=== PATIENT | female | born 1990 | race African-American/Black ===

== ENCOUNTER 2017-03-25 20:08 | Emergency (ER) | payer BC, OTHER ==
[~2017-03-25 20:08] MED LIST: BACT800T5 PO; CEPH500 PO; CEPH500C3 PO; CORT1SOL LEFT EAR; IBUP600T26 PO; NAPR500 PO; PYRI200T4 PO
[2017-03-25 20:10] VITALS: BP 138/97; PULSE 69; RESP 16; TEMP 98.6; O2SAT 99
[2017-03-25] MEDS ORDERED: LIDOCAINE 1%/EPINEPHrine 1:100,000 SOLN 20 ML VIAL INFIL ONE (21:15)
--- NOTE | 2017-03-25 21:16 | PD ---
HPI Chief Complaint: Oral / Dental Pain or Problem Time Seen by Provider: 21:09 Travel History International Travel<30 days: No Contact w/Intl Traveler<30days: No Traveled to known affect area: No History of Present Illness HPI 26-year-old female here for evaluation of dental pain. The patient reports left upper posterior tooth pain that started yesterday. Pain is 7 out of 10, radiates to her left ear, constant, worse with palpation. She is able to swallow and tolerate her secretions. No fevers or chills. She took ibuprofen yesterday which helped, however today it does not appear to be effective. PFSH Past Medical History Diminished Hearing: No Seizures: Yes Shingles: Yes ?: Not LMP: 02/20/17 Menopausal: No : 3 Para: 3 Miscarriage: 0 : 0 Past Surgical History Other Surgery: Yes (TOE SURGERY) Social History Alcohol Use: No Tobacco Use: Yes (/2 ppd) Substance Use: No Allergies-Medications (Allergen,Severity, Reaction): Coded Allergies: Codeine (Verified Allergy, Mild, SICK, ITCHY, 03/25/17) Reported Meds & Prescriptions Reported Meds & Active Scripts Active Cortisporin HC Otic Drops (Cepcihlx-Itzddwicu-BE Otic Drops) 3.5-10,000-1 Mg- Units-% Soln 4 Drop LEFT EAR QID 7 Days Naprosyn (Naproxen) 500 Mg Tab 500 Mg PO Q12HR PRN Pyridium (Phenazopyridine HCl) 200 Mg Tab 200 Mg PO TID PRN As needed for painful urination Keflex 500 mg Cap (Cephalexin Monohydrate) 500 Mg Cap 500 Mg PO TID 7 Days Ibuprofen 600 Mg Tab 600 Mg PO Q8HR PRN Keflex (Cephalexin Monohydrate) 500 Mg Cap 500 Mg PO QID 5 Days Bactrim Ds1 Tab 1 Tab Tab 1 Tab PO BID 10 Days Review of Systems Except as stated in HPI: all other systems reviewed are Neg Physical Exam Narrative GENERAL: Well-developed, well-nourished, comfortable, no acute distress. SKIN: Focused skin assessment warm/dry. HEAD: Atraumatic. Normocephalic. EYES: Pupils equal and round. No scleral icterus. No injection or drainage. ENT: Poor dentition. Left upper posterior molar sensitivity. NEUROLOGICAL: Awake and alert. No obvious cranial nerve deficits. Motor grossly within normal limits. Normal speech. PSYCHIATRIC: Appropriate mood and affect; insight and judgment normal. Data Data Last Documented VS Vital Signs Date Time Temp Pulse Resp B/P Pulse Ox O2 Delivery O2 Flow Rate FiO2 03/25/17 20:10 98.6 69 16 138/97 99 Room Air Orders Lidocai-Epi 1%-1:100,000 Inj (Xylocaine- (03/25/17 21:15) MDM Medical Decision Making Medical Screen Exam Complete: Yes Emergency Medical Condition: Yes Differential Diagnosis Dental caries, dental infection Narrative Course This is a 26 old female who is here for evaluation of left upper/posterior dental pain. Patient has poor dentition with several apparent cavities. No drooling or stridor on exam. No fluctuance or induration. Left greater palatine nerve block was performed with significant improvement in pain. See procedure note. Patient will be discharged home with a perception for pain medication as well as an antibiotic. She was instructed to follow-up with a dentist this week. She was informed on when to return to the emergency department. She verbalizes understanding and agreement with plan. Procedures Procedure Narrative Left greater palatine nerve block: Using a 27-gauge needle, 0.5 cc of 1% lidocaine with epinephrine was injected in the area of the left greater palatine nerve. The patient experienced immediate relief of pain. No complications. Tolerated well. Diagnosis Primary Impression: Pain, dental Referrals: Dentist 3 days Additional Instructions: Follow-up with a dentist this week. Return to the emergency department for worsening symptoms or any other concerns. Scripts Hydrocodone-Acetaminophen (Lortab)5-325 Mg Tab1 Tab PO Q6H PRN (PAIN) #10 TAB Ref 0 Prov:Perry Avalos MD 03/25/17 Penicillin V Potassium 500 Mg [id number] Mg PO Q8H 7 Days Ref 0 Prov:Perry Avalos MD 03/25/17 Disposition: 01 DISCHARGE HOME Condition: Stable Perry Avalos MD Mar 25, 2017 21:16
[2017-03-25] MEDS ORDERED: HYDR-3533 PO (21:26)
[2017-03-25] MEDS ORDERED: PENI500T PO (21:26)
[2017-03-25] MEDS ORDERED: PENICILLIN V POTASSIUM 500 MG TAB PO ONE (21:30)
== END 2017-03-25 23:26 | disposition home or self-care (01) ==
LOC: NEPD 20:08
DX: K08.89 Other specified disorders of teeth and supporting structures (principal); F17.210 Nicotine dependence, cigarettes, uncomplicated
CPT/HCPCS: 64400

== ENCOUNTER 2017-03-28 08:39 | Emergency (ER) | payer OTHER ==
[~2017-03-28 08:39] MED LIST changes: +HYDR-3533 PO; +PENI500T PO
[2017-03-28 08:44] VITALS: BP 140/75; PULSE 75; RESP 16; TEMP 98.2; O2SAT 98
--- NOTE | 2017-03-28 09:09 | PD ---
HPI Chief Complaint: Skin Problem Time Seen by Provider: 09:09 Travel History International Travel<30 days: No Contact w/Intl Traveler<30days: No Traveled to known affect area: No History of Present Illness HPI 26-year-old female presents to the emergency department with 2 complaints. First complaint is vaginal discharge times one week. Reports foul odor. Denies vaginal lesions. Her second complaint is an abscess to the left labia 4 days. Has history of abscess to the same area one year ago. Denies dysuria. Denies abdominal pain, cramping. Reports nausea without vomiting. Denies fever. Last menstrual period February 22. Has not taken any medications or tried any treatments to alleviate her symptoms. Denies any known exposure to STDs. Has no other medical complaints. Allergies to codeine. No other modifying factors or associated signs and symptoms. PFSH Past Medical History Diminished Hearing: No Seizures: Yes Shingles: Yes ?: Unknown LMP: FEBRUARY Menopausal: No : 3 Para: 3 Miscarriage: 0 : 0 Past Surgical History Other Surgery: Yes (TOE SURGERY) Social History Alcohol Use: No Tobacco Use: Yes (1/2 ppd) Substance Use: No Allergies-Medications (Allergen,Severity, Reaction): Coded Allergies: Codeine (Verified Allergy, Mild, SICK, ITCHY, 03/25/17) Reported Meds & Prescriptions Reported Meds & Active Scripts Active Flagyl (Metronidazole) 500 Mg Tab 500 Mg PO BID 7 Days Ibuprofen 800 Mg Tab 800 Mg PO Q6HR PRN Keflex (Cephalexin) 500 Mg Cap 500 Mg PO Q6H 10 Days Bactrim DS (Sulfamethoxazole-Trimethoprim) 800-160 Mg Tab 1 Tab PO BID 10 Days Review of Systems Except as stated in HPI: all other systems reviewed are Neg Physical Exam Narrative GENERAL: Well-nourished, well-developed female patient, in no acute distress; afebrile, nontoxic-appearing SKIN: There is an indurated area to the left which measures about 3 cm in diameter. It is fluctuant but there is no pointing or drainage. There is a zone of inflammation around it but no lymphangitis. No groin HEAD: Atraumatic. Normocephalic. EYES: Pupils equal and round. No scleral icterus. No injection or drainage. ENT: Mucous membranes pink and moist. NECK: Trachea midline. No lymphadenopathy. CARDIOVASCULAR: Regular rate. RESPIRATORY: No accessory muscle use. Clear to auscultation. Breath sounds equal bilaterally. GASTROINTESTINAL: Abdomen soft, non-tender, nondistended. Bilateral pelvic region nontender to palpation. Hepatic and splenic margins not palpable. No guarding, rigidity, rebound tenderness. PELVIC: Exam done in the presence of a nurse. Speculum exam reveals edematous and erythematous cervix with thick white, mucopurulent, foul-smelling discharge. Bimanual exam reveals no palpable masses or adnexa tenderness, no uterine tenderness. No cervical motion tenderness. BACK: No CVA tenderness. MUSCULOSKELETAL: No obvious deformities. No clubbing. No cyanosis. No edema. NEUROLOGICAL: Awake and alert. No obvious cranial nerve deficits. Motor grossly within normal limits. Normal speech. PSYCHIATRIC: Appropriate mood and affect; insight and judgment normal. Data Data Last Documented VS Vital Signs Date Time Temp Pulse Resp B/P Pulse Ox O2 Delivery O2 Flow Rate FiO2 03/28/17 08:44 98.2 75 16 140/75 98 Orders Gc And Chlamydia Pcr (03/28/17 09:05) Wet Prep Profile (03/28/17 09:05) Urinalysis - C+S If Indicated (03/28/17 09:05) Ed Urine Pregnancytest Poc (03/28/17 09:05) Wound Culture And Gram Stain (03/28/17 09:05) Ketorolac Inj (Toradol Inj) (03/28/17 09:15) Azithromycin Powd Pack (Zithromax Powd P (03/28/17 09:30) Ceftriaxone Inj (Rocephin Inj) (03/28/17 09:30) Lidocaine 1% Inj (50 Ml) (Xylocaine 1% I (03/28/17 09:30) Labs Laboratory Tests Test 03/28/17 09:28 Urine Color YELLOW Urine Turbidity HAZY Urine pH 6.0 Urine Specific [place] 1.039 Urine Protein TRACE mg/dL Urine Glucose (UA) NEG mg/dL Urine Ketones NEG mg/dL Urine Occult Blood NEG Urine Nitrite NEG Urine Bilirubin NEG Urine Urobilinogen LESS THAN 2.0 MG/DL Urine Leukocyte Esterase LARGE Urine RBC 1 /hpf Urine WBC 3 /hpf Urine Squamous Epithelial 19 /hpf Cells Urine Mucus MOD /lpf Microscopic Urinalysis Comment CULT NOT INDICATED Clue Cells (Wet Prep) PRESENT Vaginal Trichomonas (Wet Prep) NONE SEEN Vaginal Yeast (Wet Prep) NONE SEEN MDM Medical Decision Making Medical Screen Exam Complete: Yes Emergency Medical Condition: Yes Medical Record Reviewed: Yes Differential Diagnosis Chlamydia, gonorrhea, labial abscess, bacterial vaginosis, vaginal yeast Narrative Course 26-year-old female with left genital labial abscess. See my procedure note for incision and drainage. Patient refused to have the abscess packed with iodoform packing. Wound culture pending. Pelvic exam completed and Chlamydia and gonorrhea are pending. Wet prep profile ordered. Urinalysis ordered. Patient will be empirically treated with Rocephin and azithromycin for cervicitis. 1055: Trichomoniasis and vaginal yeast negative. Positive bacterial vaginosis. Urinalysis with no signs of infection. Bactrim, Keflex, Flagyl prescribed for home. Instructed patient to follow up with gynecology. Patient verbalizes understanding and agreement with treatment plan. Patient is medically cleared and stable for discharge. Discussed reasons to return to the emergency department. Instructed patient to follow up with primary care provider. Patient agrees with treatment plan. The patients vital signs are stable and the patient is stable for outpatient follow-up and treatment. Patient discharged home, stable and in no acute distress. Procedures Procedure Narrative INCISION AND DRAINAGE OF ABSCESS: The area was prepped and was sterilely draped. Ethyl chloride was used to anesthetize the area. The area was properly anesthetized. A number 11 scalpel was used to make a 0.5-cm incision across the area of the abscess. Cultures were obtained. The abscess was drained an irrigated with normal saline. Sterile dressing applied. Diagnosis Primary Impression: Left genital labial abscess Additional Impressions: Cervicitis Bacterial vaginosis Referrals: [employer] Primary Care Physician Patient Instructions: Abscess (ED), Abscess Follow-up (ED), Abscess Incision and Drainage (ED), Bacterial Vaginosis (ED), General Instructions Departure Forms: Tests/Procedures, Work Release Enter return to work date: Mar 30, 2017 Additional Instructions: Complete full course of antibiotics Warm compresses to the affected area Keep area clean and dry Ibuprofen or Tylenol as directed and as needed for pain and inflammation Follow-up with primary care provider 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 Return to emergency department immediately with worsening of symptoms Med/Other Pt SpecificInfo: Prescription(s) given Scripts Metronidazole (Flagyl)500 Mg [id number] Mg PO BID 7 Days Ref 0 Prov:GertrudeSilva CARRIONP 03/28/17 Ibuprofen 800 Mg [id number] Mg PO Q6HR PRN (PAIN) #30 TAB Ref 0 Prov:GertrudeSilvaP 03/28/17 Cephalexin (Keflex)500 Mg [id number] Mg PO Q6H 10 Days Ref 0 Prov:AlonzoSilva díazP 03/28/17 Sulfamethoxazole-Trimethoprim (Bactrim DS)800-160 Mg Tab1 Tab PO BID 10 Days Ref 0 Prov:GertrudeSilva CARRIONP 03/28/17 Disposition: 01 DISCHARGE HOME Condition: Stable AlonzoSilva díaz Mar 28, 2017 09:09
[2017-03-28] MEDS ORDERED: CEPH-460 PO (09:14)
[2017-03-28] MEDS ORDERED: IBUP800T23 PO (09:14)
[2017-03-28] MEDS ORDERED: BACT800T5 PO (09:14)
[2017-03-28] MEDS ORDERED: KETOROLAC TROMETHAMINE 60 MG/2 ML (IM) VIAL IM ONE (09:15)
[2017-03-28] MEDS ORDERED: LIDOCAINE HCL 1% 50 ML VIAL IM ONE (09:30)
[2017-03-28] MEDS ORDERED: cefTRIAXone 250 MG VIAL IM ONE (09:30)
[2017-03-28] MEDS ORDERED: AZITHROMYCIN PWD FOR SUSP 1 GM PACKET PO ONE (09:30)
[2017-03-28 10:35] LABS: BLOOD, URINE NEG (NEG); COMMENT (UR) CULT NOT INDICATED; CULTURE IF INDICATED CULT NOT INDICATED; GLUCOSE,URINE NEG (NEG); KETONE, URINE NEG (NEG); MUCUS URINE MOD /lpf (OCC); NITRITE,URINE NEG (NEG); SQUAMOUS EPITHELIAL CELL URINE 19 /hpf (0-5); URINE COLOR YELLOW (YELLW/STRAW)
[2017-03-28] MEDS ORDERED: METR-1 PO (10:57)
[2017-03-28 17:18] LABS: CHLAMYDIA PCR INVALID (NOT DETECT); NEISSERIA PCR INVALID (NOT DETECT)
== END 2017-03-28 11:07 | disposition home or self-care (01) ==
LOC: NEPD 08:39
DX: N76.4 Abscess of vulva (principal); N72 Inflammatory disease of cervix uteri; N76.0 Acute vaginitis
CPT/HCPCS: 56405; 81001; 84703; 87070; 87210; 87491; 87591; 96372; 99284; J0696; J1885

== ENCOUNTER 2017-05-12 16:31 | Emergency (ER) | payer OTHER ==
[~2017-05-12] VITALS: Ht 180.3 cm; Wt 108.0 kg
[~2017-05-12 16:31] MED LIST changes: +CEPH-460 PO; -CEPH500 PO; -CEPH500C3 PO; -CORT1SOL LEFT EAR; -HYDR-3533 PO; -IBUP600T26 PO; +IBUP800T23 PO; +METR-1 PO; -NAPR500 PO; -PENI500T PO; -PYRI200T4 PO
[2017-05-12 16:35] VITALS: BP 130/82; PULSE 76; RESP 20; TEMP 98.3; O2SAT 100
--- NOTE | 2017-05-12 16:38 | PD ---
Physical Exam Date Seen by Provider: May 12, 2017 Time Seen by Provider: 16:36 Narrative 26 yo female here for lower abdominal pain. Per patient is like cramps. No N/V/ D. Possibly . No other medical problems. pain is 6/10. Cramping. Vitals are stable in triage. Awaiting Bed placement. Data Data Last Documented VS Vital Signs Date Time Temp Pulse Resp B/P Pulse Ox O2 Delivery O2 Flow Rate FiO2 05/12/17 16:35 98.3 76 20 130/[address] [facility] Medical Record Reviewed: Yes Supervised Visit with KRISTOFER: Get [place] May 12, 2017 16:37
--- NOTE | 2017-05-12 16:56 | PD ---
HPI Chief Complaint: GI Complaint Time Seen by Provider: 16:56 Travel History International Travel<30 days: No Contact w/Intl Traveler<30days: No Traveled to known affect area: No History of Present Illness HPI 26 YO F presents to the ED for evaluation of PFSH Past Medical History Diminished Hearing: No Seizures: Yes Shingles: Yes ?: Unknown LMP: 04/03/17 Menopausal: No : 3 Para: 3 Miscarriage: 0 : 0 Past Surgical History Other Surgery: Yes (TOE SURGERY) Social History Alcohol Use: No Tobacco Use: Yes (1/2 ppd) Substance Use: No Allergies-Medications (Allergen,Severity, Reaction): Coded Allergies: Codeine (Verified Allergy, Mild, SICK, ITCHY, 05/12/17) Reported Meds & Prescriptions Reported Meds & Active Scripts Active Flagyl (Metronidazole) 500 Mg Tab 500 Mg PO BID 7 Days Ibuprofen 800 Mg Tab 800 Mg PO Q6HR PRN Keflex (Cephalexin) 500 Mg Cap 500 Mg PO Q6H 10 Days Bactrim DS (Sulfamethoxazole-Trimethoprim) 800-160 Mg Tab 1 Tab PO BID 10 Days Data Data Last Documented VS Vital Signs Date Time Temp Pulse Resp B/P Pulse Ox O2 Delivery O2 Flow Rate FiO2 05/12/17 16:35 98.3 76 20 130/82 100 Room Air Orders Urinalysis - C+S If Indicated (05/12/17 16:55) Ed Urine Pregnancytest Poc (05/12/17 16:55) Lori Lynn May 12, 2017 16:56
--- NOTE | 2017-05-12 18:57 | PD ---
HPI Chief Complaint: GI Complaint Time Seen by Provider: 17:00 Travel History International Travel<30 days: No Contact w/Intl Traveler<30days: No Traveled to known affect area: No History of Present Illness HPI C/O LOWER ABD CRAMPY SUPRAPUBIC PAIN, DENIES N/V/D/ AT THIS POINT AND RATES IT A 310, PFSH Past Medical History Diminished Hearing: No Seizures: Yes Shingles: Yes Tetanus Vaccination: < 5 Years Influenza Vaccination: No ?: Unknown LMP: 04/03/17 Menopausal: No : 4 Para: 4 Miscarriage: 0 : 0 Past Surgical History Surgical History: No Previous Surgery Other Surgery: Yes (TOE SURGERY) Social History Alcohol Use: No Tobacco Use: Yes (1/2 ppd) Substance Use: No Allergies-Medications (Allergen,Severity, Reaction): Coded Allergies: Codeine (Verified Allergy, Mild, SICK, ITCHY, 05/15/17) Reported Meds & Prescriptions Reported Meds & Active Scripts Active No Active Prescriptions or Reported Medications Review of Systems Except as stated in HPI: all other systems reviewed are Neg Gastrointestinal: Positive: Abdominal Pain Physical Exam Narrative GENERAL: SKIN: Warm and dry. HEAD: Atraumatic. Normocephalic. EYES: Pupils equal and round. No scleral icterus. No injection or drainage. ENT: No nasal bleeding or discharge. Mucous membranes pink and moist. NECK: Trachea midline. No JVD. CARDIOVASCULAR: Regular rate and rhythm. RESPIRATORY: No accessory muscle use. Clear to auscultation. Breath sounds equal bilaterally. GASTROINTESTINAL: Abdomen soft, non-tender, nondistended. MUSCULOSKELETAL: Extremities without clubbing, cyanosis, or edema. No obvious deformities. NEUROLOGICAL: Awake and alert. No obvious cranial nerve deficits. Motor grossly within normal limits. Five out of 5 muscle strength in the arms and legs. Normal speech. PSYCHIATRIC: Appropriate mood and affect; insight and judgment normal. Data Data Last Documented VS Vital Signs Date Time Temp Pulse Resp B/P Pulse Ox O2 Delivery O2 Flow Rate FiO2 05/12/17 20:52 82 18 135/84 100 Room Air 05/12/17 16:35 98.3 Orders Urinalysis - C+S If Indicated (05/12/17 16:55) Ed Urine Pregnancytest Poc (05/12/17 16:55) Beta Hcg (Quant/Titer) (05/12/17 20:36) Complete Blood Count With Diff (05/12/17 20:36) Basic Metabolic Panel (Bmp) (05/12/17 20:36) Complete Rh (05/12/17 20:36) Iv Access Insert/Monitor (05/12/17 20:36) Us Pelvis (Ques Pr/Ect)W Trans (05/12/17 ) Labs Laboratory Tests Test 05/12/17 05/12/17 19:05 20:50 Urine Color YELLOW Urine Turbidity HAZY Urine pH 6.0 Urine Specific [place] 1.032 Urine Protein 30 mg/dL Urine Glucose (UA) NEG mg/dL Urine Ketones 10 mg/dL Urine Occult Blood NEG Urine Nitrite NEG Urine Bilirubin NEG Urine Urobilinogen 2.0 MG/DL Urine Leukocyte Esterase SMALL Urine RBC 3 /hpf Urine WBC 3 /hpf Urine Squamous Epithelial 6 /hpf Cells Urine Mucus MANY /lpf Microscopic Urinalysis Comment CULT NOT INDICATED White Blood Count 9.5 TH/MM3 Red Blood Count 4.34 MIL/MM3 Hemoglobin 10.2 GM/DL Hematocrit 33.1 % Mean Corpuscular Volume 76.4 FL Mean Corpuscular Hemoglobin 23.5 PG Mean Corpuscular Hemoglobin 30.8 % Concent Red Cell Distribution Width 18.4 % Platelet Count 251 TH/MM3 Mean Platelet Volume 8.7 FL Neutrophils (%) (Auto) 50.5 % Lymphocytes (%) (Auto) 38.1 % Monocytes (%) (Auto) 6.4 % Eosinophils (%) (Auto) 4.3 % Basophils (%) (Auto) 0.7 % Neutrophils # (Auto) 4.8 TH/MM3 Lymphocytes # (Auto) 3.6 TH/MM3 Monocytes # (Auto) 0.6 TH/MM3 Eosinophils # (Auto) 0.4 TH/MM3 Basophils # (Auto) 0.1 TH/MM3 CBC Comment DIFF FINAL Differential Comment Sodium Level 139 MEQ/L Potassium Level 3.4 MEQ/L Chloride Level 108 MEQ/L Carbon Dioxide Level 22.8 MEQ/L Anion Gap 8 MEQ/L Blood Urea Nitrogen 10 MG/DL Creatinine 0.88 MG/DL Estimat Glomerular Filtration 94 ML/MIN Rate Random Glucose 77 MG/DL Calcium Level 8.8 MG/DL Human Chorionic Gonadotropin, 2342 MIU/ML Quant Blood Type B POSITIVE Rho(D) Type POSITIVE MDM Medical Decision Making Medical Screen Exam Complete: Yes Emergency Medical Condition: Yes Medical Record Reviewed: Yes Differential Diagnosis UTI V ECTOPIC V IUP Narrative Course NO E/O ADNEXAL MASS, NO E/O UTI, NL LABS Diagnosis Primary Impression: Intrauterine , incidental Scripts No Active Prescriptions or Reported Meds Disposition: 01 DISCHARGE HOME Condition: Stable Aníbal Lane MD May 12, 2017 18:57
[2017-05-12 19:19] LABS: BLOOD, URINE NEG (NEG); COMMENT (UR) CULT NOT INDICATED; CULTURE IF INDICATED CULT NOT INDICATED; GLUCOSE,URINE NEG (NEG); KETONE, URINE 10 mg/dL (NEG); MUCUS URINE MANY /lpf (OCC); NITRITE,URINE NEG (NEG); SQUAMOUS EPITHELIAL CELL URINE 6 /hpf (0-5); URINE COLOR YELLOW (YELLW/STRAW)
[2017-05-12 20:52] VITALS: BP 135/84; PULSE 82; RESP 18; O2SAT 100
[2017-05-12 21:15] LABS: AUTOMATED NEUTROPHIL # 4.8 TH/MM3 (1.8-7.7); BASOPHIL # 0.1 TH/MM3 (0-0.2); BASOPHIL % 0.7 % (0.0-2.0); EOSINOPHIL # 0.4 TH/MM3 (0-0.4); EOSINOPHIL % 4.3 % (0.0-4.0); HEMATOCRIT 33.1 % (35.0-46.0); HEMO FLAGS DIFF FINAL; LYMPH % 38.1 % (9.0-44.0); LYMPHOCYTE # 3.6 TH/MM3 (1.0-4.8); MEAN CELL VOLUME 76.4 FL (80.0-100.0); MEAN CORPUSCULAR HEMOGLOBIN 23.5 PG (27.0-34.0); MEAN CORPUSCULAR HGB CONC 30.8 % (32.0-36.0); MONO % 6.4 % (0.0-8.0); NEUT % 50.5 % (16.0-70.0); PLATELET COUNT 251 TH/MM3 (150-450); RED BLOOD COUNT 4.34 MIL/MM3 (4.00-5.30); RED CELL DISTRIBUTION WIDTH 18.4 % (11.6-17.2); WHITE BLOOD COUNT 9.5 TH/MM3 (4.0-11.0)
[2017-05-12 21:27] LABS: BICARBONATE 22.8 MEQ/L (21.0-32.0); POTASSIUM 3.4 MEQ/L (3.5-5.1)
--- NOTE | 2017-05-12 22:28 | RADRPT ---
EXAM DATE/TIME: 05/12/2017 21:10 [place] COMPARISON: No previous studies available for comparison. INDICATIONS : Pelvic pain with . LAB(S): Beta-hC MEDICAL HISTORY : . Seizures. Shingles. SURGICAL HISTORY : Toe surgery. ENCOUNTER: Initial ACUITY: 4-6 days PAIN SCORE: 2/10 LOCATION: Bilateral pelvis MEASUREMENTS: UTERUS: 10.9 x 7.2 x 6.3 cm ENDOMETRIAL STRIPE: >20 mm RIGHT OVARY: 3.2 x 2.6 x 1.9 cm LEFT OVARY: 5.5 x 4.5 x 2.8 cm FREE FLUID: No CROWN RUMP LENGTH: Not visualized = WKS DAYS COMPLETE APPROPRIATE ITEMS PRE PROCEDURE: ID x 2: Complete NameDate of BirthPatient Name Band . FINDINGS: A gestational sac and yet the sac are seen in the uterine fundus. Measurements are out of range for a ccurate dating. Right ovary unremarkable. There is a 4.2 cm left ovarian cyst. CONCLUSION: 1. Early with positive gestational sac and yolk sac. Measurements to small for accurate sadia ing. No pole identified at this point. 2. 4.2 cm left ovarian cyst. Addison Rascon MD on May 12, 2017 at 22:21 Board Certified Radiologist. This report was verified electronically.
[2017-05-12] MEDS ORDERED: ZOFR4TAB3 SL (22:34)
== END 2017-05-12 23:02 | disposition home or self-care (01) ==
LOC: NEPD 16:31
DX: O26.891 Other specified pregnancy related conditions, first trimester (principal); Z3A.00 Weeks of gestation of pregnancy not specified
CPT/HCPCS: 76700; 76817; 80048; 81001; 84702; 84703; 85025; 86901

== ENCOUNTER 2017-05-15 18:40 | Emergency (ER) | payer OTHER ==
[~2017-05-15] VITALS: Ht 180.3 cm; Wt 104.5 kg
[~2017-05-15 18:40] MED LIST changes: +ZOFR4TAB3 SL
[2017-05-15 18:50] VITALS: BP 117/76; PULSE 66; RESP 24; TEMP 98.7; O2SAT 100
--- NOTE | 2017-05-15 19:42 | PD ---
HPI Chief Complaint: Back/ Neck Pain or Injury Time Seen by Provider: 19:32 Travel History International Travel<30 days: No Contact w/Intl Traveler<30days: No Traveled to known affect area: No History of Present Illness HPI 26-year-old black female with early first trimester presents with complaints of upper back pain. The patient states that she had lifted her cousin up off the floor earlier today twisting her back. The patient states that she has not had any abdominal pain. No nausea vomiting. No acute fluid or vaginal bleeding. PFSH Past Medical History Diminished Hearing: No Seizures: Yes Shingles: Yes ?: LMP: LMP 04/03/17 Menopausal: No : 4 Para: 4 Miscarriage: 0 : 0 Past Surgical History Other Surgery: Yes (TOE SURGERY) Social History Alcohol Use: No Tobacco Use: Yes (10/05 ppd) Substance Use: No Allergies-Medications (Allergen,Severity, Reaction): Coded Allergies: Codeine (Verified Allergy, Mild, SICK, ITCHY, 05/15/17) Reported Meds & Prescriptions Reported Meds & Active Scripts Active No Active Prescriptions or Reported Medications Review of Systems Except as stated in HPI: all other systems reviewed are Neg Physical Exam Narrative GENERAL: Well-developed, well-nourished in no apparent distress. Nontoxic appearing. HEAD: Normocephalic, atraumatic. EYES: Pupils equal round and reactive. Extraocular motions intact. No scleral icterus. No injection or drainage. ENT: Nose clear. Throat without erythema, tonsillar hypertrophy or exudate. Uvula midline. Airway patent. NECK: Trachea midline. Supple, nontender, moves head freely. No central bony tenderness or spasm. CARDIOVASCULAR: Regular rate and rhythm without murmurs, gallops, or rubs. RESPIRATORY: Clear to auscultation. Breath sounds equal bilaterally. No wheezes , rales, or rhonchi. GASTROINTESTINAL: Abdomen soft, non-tender, nondistended. No hepato-splenomegaly , or palpable masses. No guarding. EXTREMITIES: No clubbing, cyanosis, or edema. No joint tenderness. BACK: No central bony tenderness to palpation of dorsal lumbar spine. Patient has mild paraspinal muscle tenderness without obvious spasm. She has full range of motion. She is neurovascular intact. Without deformity. No flank tenderness. NEUROLOGICAL: Awake, alert and oriented x 3 .Cranial nerves grossly intact. Motor and sensory grossly within normal limits. Normal speech. Data Data Last Documented VS Vital Signs Date Time Temp Pulse Resp B/P Pulse Ox O2 Delivery O2 Flow Rate FiO2 05/15/17 18:50 98.7 66 24 117/76 100 Room Air MDM Medical Decision Making Medical Screen Exam Complete: Yes Emergency Medical Condition: Yes Medical Record Reviewed: Yes Differential Diagnosis MDM: High Differential diagnoses: Fracture, sprain, strain, HNP, nerve or vascular injury , epidural abscess, pilonidal cyst Narrative Course This is back strain. Patient is in her first trimester . She is advised only to take Tylenol. Patient verbally states understanding. Diagnosis Primary Impression: Back strain Qualified Code: S39.012A - Back strain, initial encounter Patient Instructions: General Instructions Departure Forms: Tests/Procedures, Work Release Special Instructions: No work 2 days. Additional Instructions: Rest. Ice for the next 3 days followed by heat . Tylenol only for pain due to her . Follow-up with a primary care doctor in one week. Return to the ER for emergencies. Med/Other Pt SpecificInfo: No Meds Exist/No RX given Scripts No Active Prescriptions or Reported Meds Disposition: 01 DISCHARGE HOME Condition: Stable Addison [place] May 15, 2017 19:42
== END 2017-05-15 19:52 | disposition home or self-care (01) ==
LOC: NEPD 18:40
DX: O99.89 Other specified diseases and conditions complicating pregnancy, childbirth and the puerperium (principal); S39.012A Strain of muscle, fascia and tendon of lower back, initial encounter; F17.200 Nicotine dependence, unspecified, uncomplicated; Z86.69 Personal history of other diseases of the nervous system and sense organs; X50.0XXA Overexertion from strenuous movement or load, initial encounter; Z3A.00 Weeks of gestation of pregnancy not specified
CPT/HCPCS: 99283

== ENCOUNTER 2017-05-27 04:23 | Emergency (ER) | payer OTHER ==
[~2017-05-27] VITALS: Ht 180.3 cm; Wt 99.0 kg
[2017-05-27 04:27] VITALS: BP 129/72; PULSE 70; RESP 20; TEMP 97.7; O2SAT 100
--- NOTE | 2017-05-27 05:08 | PD ---
HPI Chief Complaint: Abdominal Pain Time Seen by Provider: 05:04 Travel History International Travel<30 days: No Contact w/Intl Traveler<30days: No Traveled to known affect area: No History of Present Illness HPI 26-year-old female presents to the emergency department for complaint of pelvic pain and vaginal bleeding and pressure with urination. Patient is also noted some right flank pain. Patient is 5 para 4 AB 0. Patient's last period was April 03 and normal for her. Patient states that she went to bed feeling well awakened at 2 AM with severe pain, 9/10 intensity. PFSH Past Medical History Narrative Medical Seizures shingles toe surgery AB 0; no tobacco use: Nursing notes reviewed Diminished Hearing: No Seizures: Yes Shingles: Yes ?: Menopausal: No : 5 Para: 4 Miscarriage: 0 : 0 Past Surgical History Section: Yes (X1) Other Surgery: Yes (TOE SURGERY) Social History Alcohol Use: No Tobacco Use: No Substance Use: No Allergies-Medications (Allergen,Severity, Reaction): Coded Allergies: codeine (Unverified Allergy, Mild, SICK, ITCHY, 05/18/17) Reported Meds & Prescriptions Reported Meds & Active Scripts Active Keflex (Cephalexin) 500 Mg Capsule 500 Mg PO Q6H 7 Days Review of Systems Except as stated in HPI: all other systems reviewed are Neg General / Constitutional: No: Fever, Chills HENT: No: Congestion Cardiovascular: No: Chest Pain or Discomfort Respiratory: No: Shortness of Breath Gastrointestinal: Positive: Nausea, Abdominal Pain (suprapubic pressure), No: Vomiting Genitourinary: Positive: Dysuria, Hematuria, Flank Pain, Vaginal Bleeding Musculoskeletal: No: Myalgias, Arthralgias Skin: No Rash Neurologic: No: Weakness Psychiatric: No: Anxiety Endocrine: No: Heat Intolerance Hematologic/Lymphatic: No: Easy Bruising Physical Exam Narrative GENERAL: Well-developed well-nourished obese female in no acute distress no respiratory distress SKIN: Warm and dry. HEAD: Normocephalic. EYES: No scleral icterus. No injection or drainage. NECK: Supple, trachea midline. No JVD or lymphadenopathy. CARDIOVASCULAR: Regular rate and rhythm without murmurs, gallops, or rubs. RESPIRATORY: Breath sounds equal bilaterally. No accessory muscle use. GASTROINTESTINAL: Abdomen soft, suprapubic tenderness to palpation without guarding or rebound, nondistended. Pelvic exam: External exam no redness no induration no blood; speculum exam scant white mucous no blood no clots no tissue cervical os closed; bimanual exam no adnexal mass or tenderness or enlargement consistent with no cervical motion tenderness cervical os closed. MUSCULOSKELETAL: No cyanosis, or edema. BACK: Nontender without obvious deformity. No CVA tenderness. Data Data Last Documented VS Vital Signs Date Time Temp Pulse Resp B/P (MAP) Pulse Ox O2 Delivery O2 Flow Rate FiO2 05/27/17 04:27 97.7 70 20 129/72 (91) 100 Orders Orders Beta Hcg (Quant/Titer) (05/27/17 05:04) Complete Blood Count With Diff (05/27/17 05:04) Basic Metabolic Panel (Bmp) (05/27/17 05:04) Gc And Chlamydia Pcr (05/27/17 05:04) Complete Rh (05/27/17 05:04) Wet Prep Profile (05/27/17 05:04) Urinalysis - C+S If Indicated (05/27/17 05:04) Iv Access Insert/Monitor (05/27/17 05:04) Ed Urine Pregnancytest Poc (05/27/17 05:04) Us Pelvis (Ques Pr/Ect)W Trans (05/27/17 ) Urine Culture (05/27/17 05:10) Labs Laboratory Tests Test 05/27/17 05:00 05/27/17 05:10 White Blood Count 7.0 TH/MM3 Red Blood Count 4.17 MIL/MM3 Hemoglobin 9.7 GM/DL Hematocrit 32.1 % Mean Corpuscular Volume 77.1 FL Mean Corpuscular Hemoglobin 23.3 PG Mean Corpuscular Hemoglobin Concent 30.2 % Red Cell Distribution Width 18.3 % Platelet Count 221 TH/MM3 Mean Platelet Volume 9.4 FL Neutrophils (%) (Auto) 46.2 % Lymphocytes (%) (Auto) 40.8 % Monocytes (%) (Auto) 8.2 % Eosinophils (%) (Auto) 4.2 % Basophils (%) (Auto) 0.6 % Neutrophils # (Auto) 3.3 TH/MM3 Lymphocytes # (Auto) 2.9 TH/MM3 Monocytes # (Auto) 0.6 TH/MM3 Eosinophils # (Auto) 0.3 TH/MM3 Basophils # (Auto) 0.0 TH/MM3 CBC Comment DIFF FINAL Differential Comment Blood Urea Nitrogen 7 MG/DL Creatinine 0.74 MG/DL Random Glucose 83 MG/DL Calcium Level 8.6 MG/DL Sodium Level 139 MEQ/L Potassium Level 3.6 MEQ/L Chloride Level 108 MEQ/L Carbon Dioxide Level 22.1 MEQ/L Anion Gap 9 MEQ/L Estimat Glomerular Filtration Rate 115 ML/MIN Human Chorionic Gonadotropin, Quant 63016 MIU/ML Urine Color YELLOW Urine Turbidity CLEAR Urine pH 6.0 Urine Specific [place] 1.028 Urine Protein NEG mg/dL Urine Glucose (UA) NEG mg/dL Urine Ketones NEG mg/dL Urine Occult Blood NEG Urine Nitrite NEG Urine Bilirubin NEG Urine Urobilinogen LESS THAN 2.0 MG/DL Urine Leukocyte Esterase LARGE Urine RBC 15 /hpf Urine WBC 11 /hpf Urine Squamous Epithelial Cells 2 /hpf Urine Bacteria RARE /hpf Urine Hyaline Casts 2 /lpf Urine Mucus FEW /lpf Urine Trichomonas RARE Microscopic Urinalysis Comment CULTURE INDICATED Clue Cells (Wet Prep) PRESENT Vaginal Trichomonas (Wet Prep) PRESENT Vaginal Yeast (Wet Prep) NONE SEEN MDM Medical Decision Making Medical Screen Exam Complete: Yes Emergency Medical Condition: Yes Medical Record Reviewed: Yes Interpretation(s) Etioc-rr-liaa hCG: Positive (B+) HC,793 CBC & BMP Diagram 05/27/17 05:00 Calcium Level 8.6 Vital Signs Date Time Temp Pulse Resp B/P (MAP) Pulse Ox O2 Delivery O2 Flow Rate FiO2 05/27/17 04:27 97.7 70 20 129/72 (91) 100 Differential Diagnosis Pelvic pain, ectopic , threatened miscarriage, UTI, pyelonephritis, appendicitis, biliary colic Narrative Course IV access obtained specimens collected and sent for resulting; [id number] hCG positive After informed verbal consent patient was placed supine a curvilinear probe used by me was applied to the lower abdomen below the pannus at the pelvis and with sagittal and longitudinal views an IUP was identified with heart rate of approximately 136. Diagnosis Primary Impression: Qualified Codes: Z3A.01 - Less than 8 weeks gestation of Additional Impression: UTI (urinary tract infection) Referrals: Investment Director 1 week Keep scheduled appointment Patient Instructions: General Instructions Additional Instructions: keep scheduled appointment with [facility] Complete course of antibiotic as prescribed Increase fluid hydration Take acetaminophen/Tylenol as needed for fever 100.4F or greater or for minor pain Take vitamins Return to the emergency department for any concerns or change in condition Med/Other Pt SpecificInfo: Prescription(s) given Scripts Cephalexin (Keflex) 500 Mg Capsule 500 MG PO Q6H for Infection for 7 Days, CAP 0 Refills Prov: Sheri Baltazar MD 05/27/17 Sheri Baltazar MD May 27, 2017 05:08
[2017-05-27 05:21] LABS: AUTOMATED NEUTROPHIL # 3.3 TH/MM3 (1.8-7.7); BASOPHIL % 0.6 % (0.0-2.0); EOSINOPHIL # 0.3 TH/MM3 (0-0.4); EOSINOPHIL % 4.2 % (0.0-4.0); HEMATOCRIT 32.1 % (35.0-46.0); HEMO FLAGS DIFF FINAL; LYMPH % 40.8 % (9.0-44.0); LYMPHOCYTE # 2.9 TH/MM3 (1.0-4.8); MEAN CELL VOLUME 77.1 FL (80.0-100.0); MEAN CORPUSCULAR HEMOGLOBIN 23.3 PG (27.0-34.0); MEAN CORPUSCULAR HGB CONC 30.2 % (32.0-36.0); MONO % 8.2 % (0.0-8.0); NEUT % 46.2 % (16.0-70.0); PLATELET COUNT 221 TH/MM3 (150-450); RED BLOOD COUNT 4.17 MIL/MM3 (4.00-5.30); RED CELL DISTRIBUTION WIDTH 18.3 % (11.6-17.2)
[2017-05-27 05:30] LABS: BACTERIA, URINE RARE /hpf; BLOOD, URINE NEG (NEG); COMMENT (UR) CULTURE INDICATED; CULTURE IF INDICATED CULTURE INDICATED; GLUCOSE,URINE NEG (NEG); HYALINE CAST, URINE 2 /lpf (RARE); KETONE, URINE NEG (NEG); MUCUS URINE FEW /lpf (OCC); NITRITE,URINE NEG (NEG); SQUAMOUS EPITHELIAL CELL URINE 2 /hpf (0-5); URINE COLOR YELLOW (YELLW/STRAW)
[2017-05-27 05:40] LABS: BICARBONATE 22.1 MEQ/L (21.0-32.0); POTASSIUM 3.6 MEQ/L (3.5-5.1)
[2017-05-27] MEDS ORDERED: CEPH-460 PO (06:18)
[2017-05-27 07:12] LABS: CHLAMYDIA PCR NOT DETECTED (NOT DETECT); NEISSERIA PCR NOT DETECTED (NOT DETECT)
[2017-05-27 07:30] VITALS: BP 114/73; PULSE 77; RESP 18; TEMP 98.2; O2SAT 99
--- NOTE | 2017-05-27 08:47 | RADRPT ---
EXAM DATE/TIME: 05/27/2017 07:58 [facility] COMPARISON: US PELVIS (QUEST PREG/ECTOPIC) W/TRANSVAG, May 12, 2017, 21:10. INDICATIONS : Pelvic pain and abdominal cramping. LAB(S): Beta-hC,793 MEDICAL HISTORY : . SURGICAL HISTORY : section. ENCOUNTER: Subsequent ACUITY: 1 day PAIN SCORE: 4/10 LOCATION: Pelvis. MEASUREMENTS: UTERUS: 11.1 x 5.4 x 7.7 cm ENDOMETRIAL STRIPE: 16 mm RIGHT OVARY: 3.8 x 2.0 x 1.0 cm LEFT OVARY: 4.3 x 3.3 x 4.6 cm FREE FLUID: No CROWN RUMP LENGTH: 0.9 cm = 6 WKS 6 DAYS FHR: 152 BPM FINDINGS: UTERUS: The examination demonstrates a gestational sac within the uterus. There is a pole evident with a crown-rump length of 0.9 CM which corresponds to a gestational age of 6 weeks 6 days. There is a fe sami heartbeat present at 150 beats per minute. Of note, there is an area of decreased echogenicity ad jacent to the gestational sac which could represent a small area of subchorionic hemorrhage. RIGHT OVARY: Ovary contains no mass or significant cystic lesion. LEFT OVARY: The examination demonstrated a 3.7 x 3.4 x 3.9 cm cyst arising from the left ovary. MISCELLANEOUS: No free fluid. CONCLUSION: 1. Viable intrauterine gestation estimated age 6 weeks 6 days. 2. 1.7 x 0.8 x 1.3 cm complex area seen adjacent to the gestational sac possibly representing a small subchorionic hemorrhage. 3. 3.7 x 3.4 x 3.9 cm cyst in the left ovary. Marky Corbett MD on May 27, 2017 at 8:40 Board Certified Radiologist. This report was verified electronically.
[2017-05-27 09:26] VITALS: BP 114/73
== END 2017-05-27 09:28 | disposition home or self-care (01) ==
LOC: NEPC 04:23
DX: O23.41 Unspecified infection of urinary tract in pregnancy, first trimester (principal); Z86.69 Personal history of other diseases of the nervous system and sense organs; Z3A.01 Less than 8 weeks gestation of pregnancy
CPT/HCPCS: 76700; 80048; 81001; 84702; 84703; 85025; 86901; 87086; 87210; 87491; 87591; 99284

== ENCOUNTER 2017-07-27 17:32 | Emergency (ER) | payer MEDICAID, OTHER ==
[~2017-07-27 17:32] MED LIST changes: -BACT800T5 PO; -IBUP800T23 PO; -METR-1 PO; -ZOFR4TAB3 SL
[2017-07-27 17:34] VITALS: BP 129/60; PULSE 76; RESP 15; TEMP 98.8; O2SAT 98
== END 2017-07-27 18:05 | disposition left against medical advice (07) ==
LOC: NED 17:32
DX: R05 Cough (principal); Z53.21 Procedure and treatment not carried out due to patient leaving prior to being seen by health care provider
CPT/HCPCS: 99281

== ENCOUNTER 2017-08-05 10:00 | Emergency (ER) | payer MEDICAID ==
[2017-08-05] VITALS (13 sets, daily range): PULSE 58–236; RESP 16; TEMP 98
--- NOTE | 2017-08-05 10:47 | PD ---
HPI Travel History International Travel<30 Days: No Contact w/Intl Traveler<30Days: No Known Affected Area: No History of Present Illness HPI 26 yr old at 17/5 weeks brought in by [facility] for abdominal pain. Patient reports that she had 2 episodes of non-blooding vomiting and nausea beginning this morning. She also complained of left-sided sharp, dull, intermittent abdominal pain radiating to her back. She suspected that it was caused by gas and tried positioning herself on her left side and on her knees w/o improvement. Her last bowel movement was 2 days ago. She endorses productive cough and BOWSER. She was recently treated 2 weeks ago for Trichomonas with a "cream ". She reports that her vaginal discharge is improving since treatment. Her vaginal discharge is clear, white, and thin. She was suppose to go to her OB/ [facility] (Dr. Prasanth Clancy) today for follow-up. She denies any hx of GC & chlamydia. She denies fevers, LOF, dysuria, vaginal bleeding, SOB, and CP. History Past Medical History Narrative Medical Seizures, last seizure was 2 years ago, not on meds Obstetric History Obstetric History -first 3 deliveries Previous delivery was primary C-setion due to Ecclampsia and respiratory distress Past Surgical History Narrative Surgical Family History Narrative Family History Breast Cancer in paternal grandma HTN Social History Alcohol Use: No Tobacco Use: Yes (smoking several cigarettes/ day) Substance Abuse: No Allergies-Medications (Allergen,Severity, Reaction): Coded Allergies: codeine (Unverified Allergy, Mild, SICK, ITCHY, 05/18/17) Home Meds Active Scripts Cephalexin (Keflex) 500 Mg Capsule, 500 MG PO Q6H for Infection for 7 Days, CAP 0 Refills Prov:Sheri Baltazar MD 05/27/17 Review of Systems Except as stated in HPI: all other systems reviewed are Neg Physical Exam Vital Signs Date Time Temp Pulse Resp B/P (MAP) Pulse Ox O2 Delivery O2 Flow Rate FiO2 08/05/17 10:35 80 08/05/17 10:35 80 08/05/17 10:30 80 08/05/17 10:30 80 08/05/17 10:25 74 08/05/17 10:25 76 08/05/17 10:20 72 08/05/17 10:15 98.0 Narrative GENERAL: Well-nourished, well-developed patient. SKIN: Warm and dry. HEAD: Normocephalic and atraumatic. EYES: No scleral icterus. No injection or drainage. ENT: No nasal drainage noted. Mucous membranes pink. Airway patent. NECK: Supple, trachea midline. No JVD. CARDIOVASCULAR: Regular rate and rhythm without murmurs, gallops, or rubs. RESPIRATORY: Breath sounds equal bilaterally. No accessory muscle use. ABDOMEN/GI: Abdomen soft, non-tender, bowel sounds present, tender to palpation in LUQ, no rebound DOPPLER HEART TONE: 136 EXTREMITIES: No cyanosis or edema. BACK: Nontender without obvious deformity. No CVA tenderness. NEUROLOGICAL: Awake and alert. Motor and sensory grossly within normal limits. Data Data Vital Signs Reviewed: Yes Orders Orders Vital Signs (Adult) .ON ADMISSION (08/05/17 10:21) ^ Labor Status (08/05/17 10:21) ^ Hydration (08/05/17 10:21) Ob Poc Ultrasound (08/05/17 ) Urinalysis - C+S If Indicated (08/05/17 10:40) MDM Plan 26 yr old at 17 weeks presents with abdominal pain, most likely constipation. -UA negative -Recommended miralax -Tylenol and heating pad for pain Diagnosis Diagnosis: Primary Impression: 17 weeks gestation of Additional Impression: Abdominal pain Disposition: DISCHARGE HOME Condition: Good Yolanda Almanza MD R1 Aug 05, 2017 10:47
[2017-08-05 11:42] LABS: BACTERIA, URINE FEW /hpf; BLOOD, URINE NEG (NEG); COMMENT (UR) CULTURE INDICATED; CULTURE IF INDICATED CULTURE INDICATED; GLUCOSE,URINE NEG (NEG); KETONE, URINE NEG (NEG); MUCUS URINE FEW /lpf (OCC); NITRITE,URINE NEG (NEG); SQUAMOUS EPITHELIAL CELL URINE 4 /hpf (0-5); URINE COLOR YELLOW (YELLW/STRAW)
== END 2017-08-05 14:10 | disposition home or self-care (01) ==
LOC: HOBED 10:00
DX: O26.892 Other specified pregnancy related conditions, second trimester (principal); R10.9 Unspecified abdominal pain; Z3A.17 17 weeks gestation of pregnancy; Z72.0 Tobacco use
CPT/HCPCS: 81001; 87086; 99283

== ENCOUNTER → 2017-08-11 | Outpatient (CLI) | payer MEDICAID, OTHER | LOC: HPND 09:22 | PROVIDERS: ATTEND Obstetrics & Gynecology | DX: O99.352 Diseases of the nervous system complicating pregnancy, second trimester (principal); O99.332 Smoking (tobacco) complicating pregnancy, second trimester; R56.9 Unspecified convulsions | CPT/HCPCS: 76811 ==

== ENCOUNTER 2017-08-27 10:06 | Emergency (ER) | payer MEDICAID ==
--- NOTE | 2017-08-27 12:39 | PD ---
HPI Chief Complaint rectal pain/pressure Date Seen: Aug 27, 2017 Time Seen: 11:26 Travel History International Travel<30 Days: No Contact w/Intl Traveler<30Days: No Known Affected Area: No History of Present Illness HPI Pt is a 26y/o @ 20.6wks. She presented with c/o acute rectal pain starting at 7am which radiated to her abdomen. She states that the pain comes/ goes. She denies ctx, LOF, or VB. Starting to feel FM. Last BM was this morning. Last sex was 2wks ago. Weeks Gestation: 20 Para: 4 : 5 History Past Medical History Narrative Medical seizures (states that she has not had one in 2yrs, not on meds) Obstetric History Obstetric History x3 CS x1 Past Surgical History Narrative Surgical CS x1 Family History Family History: Negative Social History Alcohol Use: No Tobacco Use: No Substance Abuse: No Allergies-Medications (Allergen,Severity, Reaction): Coded Allergies: codeine (Unverified Allergy, Mild, SICK, ITCHY, 05/18/17) Home Meds Active Scripts Cephalexin (Keflex) 500 Mg Capsule, 500 MG PO Q6H for Infection for 7 Days, CAP 0 Refills Prov:Sheri Baltazar MD 05/27/17 Review of Systems Except as stated in HPI: all other systems reviewed are Neg Physical Exam Narrative General: well developed, well nourished, writhing in bed HEENT: normocephalic atraumatic, extraocular movements intact, neck supple Abdomen: soft, gravid, nontender, nondistended Extremities: full range of motion Skin: normal coloration, no rashes, no suspicious skin lesions noted Neurologic: cranial nerves 2-12 grossly intact, normal muscle tone, normal gait Psychiatric: normal mood and affect, appropriate FHTs: present (140) [place]: quiet Cvx: cl/th/high Data Data Vital Signs Reviewed: Yes Orders Orders Vital Signs (Adult) .ON ADMISSION (08/27/17 11:19) ^ Labor Status (08/27/17 11:19) Urinalysis - C+S If Indicated (08/27/17 11:19) Us Ob Limited (08/27/17 ) MDM Plan 26y/o @ 20.6wks with acute rectal/pelvic pain -- FHTs present -- toco quiet -- BM this AM -- UA neg -- given h/o CS x1 and pain out of proportion to findings, US performed and was negative for any acute findings -- pt states that she feels better, is eating/drinking, and requests a note off work today Dispo: stable for d/c home Diagnosis Diagnosis: Primary Impression: 20 weeks gestation of Additional Impressions: Grand multiparity Rectal pain Lien Avalos MD Aug 27, 2017 12:39
[2017-08-27 14:08] LABS: BACTERIA, URINE RARE /hpf; BLOOD, URINE NEG (NEG); GLUCOSE,URINE NEG (NEG); KETONE, URINE NEG (NEG); MUCUS URINE FEW /lpf (OCC); NITRITE,URINE NEG (NEG); PH, URINE 6.5 (5.0-8.5); SQUAMOUS EPITHELIAL CELL URINE 2 /hpf (0-5); URINE COLOR YELLOW (YELLW/STRAW)
[2017-08-27 14:09] LABS: COMMENT (UR) CULT NOT INDICATED; CULTURE IF INDICATED CULT NOT INDICATED
== END 2017-08-27 12:50 | disposition home or self-care (01) ==
LOC: HOBED 10:06
DX: O26.892 Other specified pregnancy related conditions, second trimester (principal); K62.89 Other specified diseases of anus and rectum; R56.9 Unspecified convulsions
CPT/HCPCS: 76815; 81001

== ENCOUNTER → 2017-09-08 | Outpatient (CLI) | payer MEDICAID | LOC: HPND 08:02 | PROVIDERS: ATTEND Obstetrics & Gynecology | DX: O99.352 Diseases of the nervous system complicating pregnancy, second trimester (principal) | CPT/HCPCS: 76816; 76825; 76827; 93325 ==

== ENCOUNTER 2017-10-03 19:17 | Emergency (ER) | payer MEDICAID ==
[2017-10-03 19:30] VITALS: BP 128/68; PULSE 86; RESP 18; TEMP 97.5
[2017-10-03] MEDS ORDERED: TRICTAB PO (19:30)
--- NOTE | 2017-10-03 19:41 | PD ---
HPI Chief Complaint: ENT Complaint Time Seen by Provider: 19:21 Travel History International Travel<30 days: No Contact w/Intl Traveler<30days: No Traveled to known affect area: No History of Present Illness HPI 26-year-old black female presents to emergency Department with complaints of left ear pain. She states that she has had some mild cold symptoms since yesterday. She's had runny nose, mild sore throat, cough followed by severe left ear pain this evening. She has been putting mineral oil on her left ear. She denies any fever chills. No nausea vomiting. No abdominal pain. No vaginal bleeding or leakage of fluid. No urinary symptoms. Patient does state that she is approximately 28 weeks . No complications. PFSH Past Medical History Diminished Hearing: No Seizures: Yes Shingles: Yes ?: Menopausal: No : 5 Para: 4 Miscarriage: 0 : 0 Past Surgical History Section: Yes (X1) Other Surgery: Yes (TOE SURGERY) Social History Alcohol Use: No Tobacco Use: No Substance Use: No Allergies-Medications (Allergen,Severity, Reaction): Coded Allergies: codeine (Unverified Allergy, Mild, SICK, ITCHY, 05/18/17) Reported Meds & Prescriptions Reported Meds & Active Scripts Active Keflex (Cephalexin) 500 Mg Capsule 500 Mg PO Q6H 7 Days Reported ( Vit-Ferrous Fumarate) 27 Mg Iron-1 Mg Tab 1 Tab PO DAILY Review of Systems Except as stated in HPI: all other systems reviewed are Neg Physical Exam Narrative GENERAL: Well-developed, well-nourished in no acute distress. Nontoxic appearing. HEAD: Normocephalic, atraumatic. EYES: Pupils equal round and reactive. Extraocular motions intact. No scleral icterus. No injection or drainage. ENT: TMs clear without erythema. The external auditory canals clear. Patient has slight distention of the TM Nose: clear . Posterior pharynx is pink and moist. No tonsillar edema or exudate. Uvula midline. Airway patent. No pain on palpation of the TMJ. NECK: Trachea midline.Supple, nontender, moves head freely. No central bony tenderness or spasm. CARDIOVASCULAR: Regular rate and rhythm without murmurs, gallops, or rubs. RESPIRATORY: Clear to auscultation. Breath sounds equal bilaterally. No wheezes , rales, or rhonchi. GASTROINTESTINAL: Abdomen soft, non-tender, gravid uterus. No hepato- splenomegaly,no guarding. EXTREMITIES: No clubbing, cyanosis, or edema. No joint tenderness, effusion, or edema noted. BACK: Nontender without deformity or crepitance. No flank tenderness. Data Data Last Documented VS Vital Signs Date Time Temp Pulse Resp B/P (MAP) Pulse Ox O2 Delivery O2 Flow Rate FiO2 10/03/17 19:30 97.5 86 18 128/68 (88) Orders Orders Proparacaine 0.5% Opth Soln (Alcaine 0.5 (10/03/17 19:45) Acetaminophen (Tylenol) (10/03/17 19:45) MDM Medical Decision Making Medical Screen Exam Complete: Yes Emergency Medical Condition: Yes Medical Record Reviewed: Yes Differential Diagnosis Differential diagnoses: Otitis media, otitis externa, serous otitis media, TMJ, dental infection Narrative Course Patient's exam reveals a upper respiratory tract virus. She has a minimally distended left TM. There is no erythema. The external auditory canals clear. She has no pain over the TMJ. No dental pain. I suspect she has some pain from serous otitis media and eustachian tube dysfunction. Diagnosis Primary Impression: Left serous otitis media Qualified Codes: H65.02 - Acute serous otitis media, left ear Additional Impressions: Eustachian tube dysfunction Qualified Codes: H69.82 - Other specified disorders of eustachian tube, left ear upper respiratory tract infection Patient Instructions: General Instructions Additional Instructions: Rest. Increase fluids. Sudafed. Chewing gum. Alcaine to 2 drops to the left ear every 2-4 hours as needed for pain. Tylenol for additional pain control. Follow-up with your OB doctor the next 1-2 days for recheck. Med/Other Pt SpecificInfo: Prescription(s) given Disposition: DISCHARGE HOME Condition: Stable Addison Del Rio Oct 03, 2017 19:41
[2017-10-03] MEDS ORDERED: ACETAMINOPHEN 325 MG TAB PO ONE (19:45)
[2017-10-03] MEDS ORDERED: PROPARACAINE HCL 0.5% OPHT SOLN 15 ML BTL LEFT EYE ONE (19:45)
== END 2017-10-03 21:38 | disposition home or self-care (01) ==
LOC: NEPD 19:17
DX: O26.892 Other specified pregnancy related conditions, second trimester (principal); H65.02 Acute serous otitis media, left ear; H69.82 Other specified disorders of Eustachian tube, left ear; J06.9 Acute upper respiratory infection, unspecified; R56.9 Unspecified convulsions; Z3A.28 28 weeks gestation of pregnancy; Z79.899 Other long term (current) drug therapy; Z88.5 Allergy status to narcotic agent
CPT/HCPCS: 99283

== ENCOUNTER 2017-10-24 01:32 | Emergency (ER) | payer MEDICAID ==
[2017-10-24] MEDS: AMOXICILLIN (TRIHYDRATE) 500 MG CAP PO (02:52)
== END 2017-10-24 02:54 | disposition home or self-care (01) ==
LOC: NEPD 01:32
DX: O26.893 Other specified pregnancy related conditions, third trimester (principal); H69.82 Other specified disorders of Eustachian tube, left ear; H65.02 Acute serous otitis media, left ear; R56.9 Unspecified convulsions; Z3A.28 28 weeks gestation of pregnancy; Z88.5 Allergy status to narcotic agent
CPT/HCPCS: 99283

== ENCOUNTER 2017-11-15 08:18 | Emergency (ER) | payer MEDICAID ==
[~2017-11-15 08:18] MED LIST changes: +AMOX500C PO; -CEPH-460 PO; +SE-NCHW CHEW
[2017-11-15 08:45] VITALS: BP 108/66; PULSE 81
--- NOTE | 2017-11-15 09:24 | PD ---
HPI Chief Complaint pelvic pressure Date Seen: Nov 15, 2017 Time Seen: 09:10 Travel History International Travel<30 Days: No Contact w/Intl Traveler<30Days: No History of Present Illness HPI 27 y/o at 32/2 weeks presents with pelvic pressure. She states it has been going on for a week or so and worse when she walks. Denies any loss of fluids, vaginal bleeding, contractions. Endorses movement. Denies any radiation of the pain or pain anywhere else. Denies any dysuria. No recent sexual activity. She gets care at [facility]. Otherwise, denies any other complaints. Denies any headaches, chest pain, SOB, leg pain. Weeks Gestation: 32 Para: 4 : 5 History Past Medical History Narrative Medical Hx of seizures, last was 4 years ago Obstetric History Obstetric History 3 SVDs at term last delivery was due to placenta previa Past Surgical History Narrative Surgical Family History Family History: Negative Social History Alcohol Use: No Tobacco Use: No Substance Abuse: No Allergies-Medications (Allergen,Severity, Reaction): Coded Allergies: codeine (Unverified Allergy, Mild, SICK, ITCHY, 10/24/17) Home Meds Active Scripts Amoxicillin (Amoxicillin) 500 Mg Cap, 500 MG PO TID for Infection, #30 CAP 0 Refills Prov:Clem Vazquez MD 10/24/17 Reported Medications Vit W/ Ferrous Fumara Chew (Se- 19 29-1 mg Chew) 1 Chew, 1 TAB CHEW DAILY for Nutritional Supplement, EA 0 Refills 10/24/17 Review of Systems General / Constitutional: Weight Gain, No: Fever, Weight Loss, Chills, Other Eyes: No: Diploplia, Blurred Vision, Visual changes, Pain, Photophobia HENT: No: Headaches, Vertigo, Lightheadedness Cardiovascular: No: Irregular Rhythm, Chest Pain or Discomfort, Palpitations, Tachycardia, Syncope, Varicosities, Edema, Cyanosis Respiratory: No: Cough, Short of Breath, Other Gastrointestinal: No: Nausea, Vomiting, Diarrhea, Constipation Genitourinary: Pelvic Pain, No: Urgency, Frequency, Dysuria, Decreased Urinary Output, Oliguria, Incontinence, Discharge, Menorrhagia, Vaginal Bleeding Musculoskeletal: No: Limited ROM, Weakness, Cramping, Edema, Pain Skin: No Rash, No Itching, No Dryness, No Lumps, No Change in Pigmentation, No Change in Nails, No Alopecia, No Lesions Neurologic: No: Weakness, Dizziness, Syncope, Focal Abnormalities, Coordination Problem, Headache, Slurred Speech, Seizures Psychiatric: No: Depression, Suicidal Ideations, Homicidal Ideation Endocrine: No: Heat Intolerance, Cold Intolerance, Polydipsia, Polyuria, Other Physical Exam Vital Signs Date Time Temp Pulse Resp B/P (MAP) Pulse Ox O2 Delivery O2 Flow Rate FiO2 11/15/17 08:45 81 108/66 (80) Narrative GENERAL: Well-nourished, well-developed patient. SKIN: Warm and dry. HEAD: Normocephalic and atraumatic. EYES: No scleral icterus. No injection or drainage. ENT: No nasal drainage noted. Mucous membranes pink. Airway patent. NECK: Supple, trachea midline. No JVD. CARDIOVASCULAR: Regular rate and rhythm without murmurs, gallops, or rubs. RESPIRATORY: Breath sounds equal bilaterally. No accessory muscle use. ABDOMEN/GI: Abdomen soft, non-tender, bowel sounds present, no rebound, no guarding Gravid to 32 weeks size GENITOURINARY: External Genitalia: intact and normal in appearance Cervix: thick,high Dilatation: 0 Effacement: 0 Station: -3 Presentation: Membranes: intact Uterine Contractions: none FHT's: Category: 1 Baseline: 130 Reactive: yes Variability: moderate Decels: none EXTREMITIES: No cyanosis or edema. BACK: Nontender without obvious deformity. No CVA tenderness. NEUROLOGICAL: Awake and alert. Motor and sensory grossly within normal limits. Five out of 5 muscle strength in all muscle groups. Normal speech. Data Data Vital Signs Reviewed: Yes Orders Orders Vital Signs (Adult) .ON ADMISSION (11/15/17 09:05) ^ Labor Status (11/15/17 09:05) ^ Non Stress Test (11/15/17 09:05) [facility] Medical Record Reviewed: Yes Interpretation(s) 27 y/o at 32/2 weeks presents with pelvic pressure Category 1 FHT Cervical exam: 0/0/-3 Urine dipstick: wnl A/P: Pelvic pressure affecting -Discharge home in stable condition -F/u with OB this week -Return to ED if vaginal bleeding, gush of fluids, frequent/severe contractions Diagnosis Diagnosis: Primary Impression: Pelvic pain affecting in third trimester, antepartum Disposition: 01 DISCHARGE HOME Condition: Stable Patient Instructions: Abdominal Pain in (ED), General Instructions Jayme Navarro MD Nov 15, 2017 09:24
== END 2017-11-15 10:20 | disposition home or self-care (01) ==
LOC: HOBED 08:18
DX: O26.893 Other specified pregnancy related conditions, third trimester (principal); R10.2 Pelvic and perineal pain; Z3A.32 32 weeks gestation of pregnancy
CPT/HCPCS: 59025

== ENCOUNTER 2017-11-26 13:27 | Emergency (ER) | payer MEDICAID ==
[2017-11-26 13:35] VITALS: BP 140/80; PULSE 82; RESP 26; TEMP 97.9; O2SAT 98
== END 2017-11-26 17:33 | disposition left against medical advice (07) ==
LOC: NED 13:27
DX: R10.9 Unspecified abdominal pain (principal); Z53.21 Procedure and treatment not carried out due to patient leaving prior to being seen by health care provider
CPT/HCPCS: 99281

== ENCOUNTER 2017-11-28 17:37 | Emergency (ER) | payer MEDICAID ==
[~2017-11-28] VITALS: Ht 180.3 cm; Wt 105.5 kg
[2017-11-28 17:39] VITALS: BP 143/98; PULSE 90; RESP 22; TEMP 98.8; O2SAT 98
[2017-11-28] MEDS ORDERED: SODIUM CHLORIDE 0.9% FLUSH 10 ML FLUSH IVF PRN (18:15)
[2017-11-28] MEDS ORDERED: LIDOCAINE VISCOUS 2% SOLN 15 ML UDC PO ONE (18:30)
[2017-11-28] MEDS ORDERED: ALUMINUM/MAGNESIUM/SIMETH 30 ML CUP PO ONE (18:30)
[2017-11-28 18:32] VITALS: O2SAT 97
[2017-11-28 18:32] LABS: AUTOMATED NEUTROPHIL # 5.2 TH/MM3 (1.8-7.7); BASOPHIL % 0.5 % (0.0-2.0); EOSINOPHIL # 0.3 TH/MM3 (0-0.4); EOSINOPHIL % 3.5 % (0.0-4.0); HEMATOCRIT 27.6 % (35.0-46.0); LYMPH % 30.6 % (9.0-44.0); LYMPHOCYTE # 2.7 TH/MM3 (1.0-4.8); MEAN CELL VOLUME 78.9 FL (80.0-100.0); MEAN CORPUSCULAR HEMOGLOBIN 25.7 PG (27.0-34.0); MEAN CORPUSCULAR HGB CONC 32.6 % (32.0-36.0); MEAN PLATELET VOLUME 8.4 FL (7.0-11.0); MONO % 6.2 % (0.0-8.0); MONOCYTE # 0.5 TH/MM3 (0-0.9); NEUT % 59.2 % (16.0-70.0); PLATELET COUNT 304 TH/MM3 (150-450); RED CELL DISTRIBUTION WIDTH 16.5 % (11.6-17.2); WHITE BLOOD COUNT 8.8 TH/MM3 (4.0-11.0)
[2017-11-28 18:43] LABS: ALBUMIN 2.4 GM/DL (3.4-5.0); ALT (GPT) 15 U/L (10-53); AST (GOT) 27 U/L (15-37); BICARBONATE 21.8 MEQ/L (21.0-32.0); BLOOD UREA NITROGEN 7 MG/DL (7-18); CALCIUM 8.6 MG/DL (8.5-10.1); CHLORIDE 108 MEQ/L (98-107); GLOMERULAR FILTRATION RATE 145 ML/MIN (>89); GLUCOSE,RANDOM 91 MG/DL (74-106); MAGNESIUM 1.6 MG/DL (1.5-2.5); SODIUM (NA) 138 MEQ/L (136-145)
[2017-11-28 18:45] LABS: PROTHROMBIN TIME - PATIENT 9.9 SEC (9.8-11.6)
[2017-11-28 18:48] LABS: ALKALINE PHOSPHATASE 75 U/L (45-117); TOTAL BILIRUBIN ADULT 0.1 MG/DL (0.2-1.0); TOTAL PROTEIN 6.5 GM/DL (6.4-8.2); TROPONIN I LESS THAN 0.02 NG/ML (0.02-0.05)
--- NOTE | 2017-11-28 18:54 | RADRPT ---
EXAM DATE/TIME: 11/28/2017 18:33 [facility] COMPARISON: No previous studies available for comparison. INDICATIONS : Shortness of breath. MEDICAL HISTORY : 34 Weeks SURGICAL HISTORY : None. ENCOUNTER: Initial ACUITY: 3 days PAIN SCORE: 0/10 LOCATION: Bilateral chest FINDINGS: PA and lateral views of the chest demonstrate the lungs to be symmetrically aerated without evidence of mass, infiltrate or effusion. The cardiomediastinal contours are unremarkable. Moderate-sized hia sami hernia. Osseous structures are intact. CONCLUSION: 1. Moderate hiatal hernia. No acute findings. Addison Rascon MD on November 28, 2017 at 18:52 Board Certified Radiologist. This report was verified electronically.
--- NOTE | 2017-11-28 19:01 | PD ---
HPI Chief Complaint: GI Complaint Time Seen by Provider: 17:54 Travel History International Travel<30 days: No Contact w/Intl Traveler<30days: No Traveled to known affect area: No History of Present Illness HPI Patient is a 27-year-old female presents emergency department for evaluation of shortness of breath. Patient is at 8 months gestational age by ultrasound. She states that she has been short of breath on and off for some time associated with some reflux and some back pain. She denies any symptoms below the diaphragm denies any abdominal pain vaginal bleeding or vaginal discharge. No cough no congestion no fevers no runny nose patient denies any history of blood clots, she has not tried anything to alleviate her symptoms prior to arrival. She was seen by triage nurse getting significantly short winded just from walking from the triage chair to the wheelchair. She states she called her [employer]EL[employer] who told to come to the emergency department. States symptoms are severe, for the past week, gradually worsening, context as above PFSH Past Medical History Diminished Hearing: No Immunizations Current: Yes Seizures: Yes Shingles: Yes ?: LMP: APRIL 2017 Menopausal: No : 5 Para: 4 Miscarriage: 0 : 0 Past Surgical History Section: Yes (X1) Other Surgery: Yes (TOE SURGERY) Social History Alcohol Use: No Tobacco Use: No Substance Use: No Allergies-Medications (Allergen,Severity, Reaction): Coded Allergies: codeine (Unverified Allergy, Mild, SICK, ITCHY, 10/24/17) Reported Meds & Prescriptions Reported Meds & Active Scripts Active Amoxicillin 500 Mg Cap 500 Mg PO TID Reported Se- 19 29-1 mg Chew ( Vit W/ Ferrous Fumara Chew) 1 Chew 1 Tab CHEW DAILY Review of Systems Except as stated in HPI: all other systems reviewed are Neg Physical Exam Narrative GENERAL: Well-developed, well-nourished, appears somewhat short of breath. SKIN: Focused skin assessment warm/dry. HEAD: Atraumatic. Normocephalic. EYES: Pupils equal and round. No scleral icterus. No injection or drainage. ENT: No nasal bleeding or discharge. Mucous membranes pink and moist. NECK: Trachea midline. No JVD. CARDIOVASCULAR: Regular rate and rhythm. No murmur appreciated. RESPIRATORY: No accessory muscle use. Clear to auscultation. Breath sounds equal bilaterally. GASTROINTESTINAL: Abdomen soft, non-tender, gravid abdomen, nontender. Hepatic and splenic margins not palpable. MUSCULOSKELETAL: No obvious deformities. No clubbing. No cyanosis. No edema. NEUROLOGICAL: Awake and alert. No obvious cranial nerve deficits. Motor grossly within normal limits. Normal speech. PSYCHIATRIC: Appropriate mood and affect; insight and judgment normal. Data Data Last Documented VS Vital Signs Date Time Temp Pulse Resp B/P (MAP) Pulse Ox O2 Delivery O2 Flow Rate FiO2 11/28/17 18:32 97 Nasal Cannula 2.00 11/28/17 17:57 18 11/28/17 17:39 98.8 90 Orders Orders Electrocardiogram (11/28/17 ) Electrocardiogram (11/28/17 18:01) Ckmb (Isoenzyme) Profile (11/28/17 18:) Complete Blood Count With Diff (11/28/17 18:01) Comprehensive Metabolic Panel (11/28/17 18:01) Magnesium (Mg) (11/28/17 18:01) Prothrombin Time / Inr (Pt) (11/28/17 18:01) Act Partial Throm Time (Ptt) (11/28/17 18:01) Troponin I (11/28/17 18:01) Ecg Monitoring (11/28/17 18:01) Iv Access Insert/Monitor (11/28/17 18:01) Oximetry (11/28/17 18:01) Oxygen Administration (11/28/17 18:01) Sodium Chloride 0.9% Flush (Ns Flush) (11/28/17 18:15) Chest, Pa & Lat (11/28/17 18:01) Al-Mag Hy-Si 40-40-4 Mg/Ml Liq (Mag-Al P (11/28/17 18:30) Lidocaine 2% Viscous (Xylocaine 2% Visco (11/28/17 18:30) Ed Poc Ultrasound (11/28/17 ) CKMB (11/28/17 18:05) CKMB% (11/28/17 18:05) Lung Scan - Perfusion (11/28/17 ) Labs Laboratory Tests Test 11/28/17 18:05 White Blood Count 8.8 TH/MM3 Red Blood Count 3.50 MIL/MM3 Hemoglobin 9.0 GM/DL Hematocrit 27.6 % Mean Corpuscular Volume 78.9 FL Mean Corpuscular Hemoglobin 25.7 PG Mean Corpuscular Hemoglobin Concent 32.6 % Red Cell Distribution Width 16.5 % Platelet Count 304 TH/MM3 Mean Platelet Volume 8.4 FL Neutrophils (%) (Auto) 59.2 % Lymphocytes (%) (Auto) 30.6 % Monocytes (%) (Auto) 6.2 % Eosinophils (%) (Auto) 3.5 % Basophils (%) (Auto) 0.5 % Neutrophils # (Auto) 5.2 TH/MM3 Lymphocytes # (Auto) 2.7 TH/MM3 Monocytes # (Auto) 0.5 TH/MM3 Eosinophils # (Auto) 0.3 TH/MM3 Basophils # (Auto) 0.0 TH/MM3 CBC Comment DIFF FINAL Differential Comment Prothrombin Time 9.9 SEC Prothromb Time International Ratio 1.0 RATIO Activated Partial Thromboplast Time 22.2 SEC Blood Urea Nitrogen 7 MG/DL Creatinine 0.60 MG/DL Random Glucose 91 MG/DL Total Protein 6.5 GM/DL Albumin 2.4 GM/DL Calcium Level 8.6 MG/DL Magnesium Level 1.6 MG/DL Alkaline Phosphatase 75 U/L Aspartate Amino Transf (AST/SGOT) 27 U/L Alanine Aminotransferase (ALT/SGPT) 15 U/L Total Bilirubin 0.1 MG/DL Sodium Level 138 MEQ/L Potassium Level 3.7 MEQ/L Chloride Level 108 MEQ/L Carbon Dioxide Level 21.8 MEQ/L Anion Gap 8 MEQ/L Estimat Glomerular Filtration Rate 145 ML/MIN Total Creatine Kinase 407 U/L Creatine Kinase MB 7.1 NG/ML Creatine Kinase MB % 1.7 % Troponin I LESS THAN 0.02 NG/ML MDM Medical Decision Making Medical Screen Exam Complete: Yes Emergency Medical Condition: Yes Differential Diagnosis PE, reflux, labor unlikely, ACS unlikely. Narrative Course Patient was room to the emergency department, discussed with Dr. Rascon regarding the possibility of pulmonary embolism and I do not think that a d-dimer would be much benefit in this patient, bedside ultrasound of her abdomen was reassuring for baby, she has no sign symptoms of labor, she was given GI cocktail was feeling somewhat better but still somewhat labored with breathing, could be anxiety but will pursue VQ scan at Dr. Rascon's suggestion. Is his opinion that the VQ scan is less radiation than the pulmonary embolism scan. I did discuss with patient of small risk of radiation exposure to the child as far as defects which should be minimal and an 8 month gestation. Patient was discussed with Dr. Maxwell at 1900 shift change to follow the VQ scan basic labs and disposition the patient appropriate Willie Alejo MD Nov 28, 2017 19:01
[2017-11-28 20:00] VITALS: BP 130/83; PULSE 82; RESP 16; O2SAT 100
--- NOTE | 2017-11-28 20:02 | RADRPT ---
EXAM DATE/TIME: 11/28/2017 19:40 [facility] COMPARISON: No previous studies available for comparison. INDICATIONS : Dyspnea for two months. DOSE: 1.0 mCi Tc99m Labeled MAA IV MEDICAL HISTORY : Seizures. SURGICAL HISTORY : section. ENCOUNTER: Initial ACUITY: 2 months PAIN SCALE: 0/10 LOCATION: chest TECHNIQUE: The patient was injected with MAA, and eight-view perfusion scan was performed. FINDINGS: PERFUSION: There is a homogenous pattern of radiotracer uptake throughout both lungs. CONCLUSION: 1. No evidence for pulmonary embolism. Addison Rascon MD on November 28, 2017 at 20:00 Board Certified Radiologist. This report was verified electronically.
[2017-11-28] MEDS ORDERED: ACETAMINOPHEN 325 MG TAB PO ONE (20:45)
--- NOTE | 2017-11-28 21:56 | RADRPT ---
EXAM DATE/TIME: 11/28/2017 21:31 [facility] COMPARISON: No previous studies available for comparison. INDICATIONS : Left leg swelling. MEDICAL HISTORY : . Seizures. Shingles. SURGICAL HISTORY : section. Toe surgery. ENCOUNTER: Initial ACUITY: 1 day PAIN SCORE: 3/10 LOCATION: Left leg. TECHNIQUE: Venous ultrasound of the leg was performed from the inguinal ligament to the proximal calf. Real-hoda e, color Doppler and spectral tracing, compression and augmentation techniques were used. FINDINGS: There is normal compressibility of the deep venous system from the inguinal region to the proximal ca lf. No echogenic clot is seen in the lumen of the common femoral, femoral, popliteal, and posterior tibial veins. There is a normal response of the venous system to proximal and distal augmentation an d respiration. CONCLUSION: Normal examination. Addison Rascon MD on November 28, 2017 at 21:54 Board Certified Radiologist. This report was verified electronically.
[2017-11-28 22:10] VITALS: PULSE 78; RESP 18; O2SAT 100
[2017-11-28] MEDS ORDERED: MECL-62 PO (22:31)
[2017-11-28] MEDS ORDERED: IBUP1TAB5 PO (22:31)
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
[2017-11-28] MEDS ORDERED: FAMO1TAB37 PO (22:43)
--- NOTE | 2017-11-28 22:43 | PD ---
Physical Exam Narrative Patient's anatomy by Dr. Alejo, pending VQ scan. Patient is , and has noted having leg cramping over the past week, began having shortness of breath over the past 3 days, and chest pain today. Data Data Last Documented VS Vital Signs Date Time Temp Pulse Resp B/P (MAP) Pulse Ox O2 Delivery O2 Flow Rate FiO2 11/28/17 22:19 11/28/17 22:10 100 Room Air 11/28/17 22:10 78 18 11/28/17 18:32 2.00 11/28/17 17:39 98.8 Orders Orders Electrocardiogram (11/28/17 18:01) Ckmb (Isoenzyme) Profile (11/28/17 18:01) Complete Blood Count With Diff (11/28/17 18:) Comprehensive Metabolic Panel (11/28/17 18:01) Magnesium (Mg) (11/28/17 18:01) Prothrombin Time / Inr (Pt) (11/28/17 18:01) Act Partial Throm Time (Ptt) (11/28/17 18:01) Troponin I (11/28/17 18:01) Ecg Monitoring (11/28/17 18:01) Iv Access Insert/Monitor (11/28/17 18:01) Oximetry (11/28/17 18:01) Oxygen Administration (11/28/17 18:01) Sodium Chloride 0.9% Flush (Ns Flush) (11/28/17 18:15) Chest, Pa & Lat (11/28/17 18:01) Al-Mag Hy-Si 40-40-4 Mg/Ml Liq (Mag-Al P (11/28/17 18:30) Lidocaine 2% Viscous (Xylocaine 2% Visco (11/28/17 18:30) Ed Poc Ultrasound (11/28/17 ) CKMB (11/28/17 18:05) CKMB% (11/28/17 18:05) Lung Scan - Perfusion (11/28/17 ) Acetaminophen (Tylenol) (11/28/17 20:45) Us Leg Venous Doppler (11/28/17 ) Ed Discharge Order (11/28/17 22:32) Labs Laboratory Tests Test 11/28/17 18:05 White Blood Count 8.8 TH/MM3 Red Blood Count 3.50 MIL/MM3 Hemoglobin 9.0 GM/DL Hematocrit 27.6 % Mean Corpuscular Volume 78.9 FL Mean Corpuscular Hemoglobin 25.7 PG Mean Corpuscular Hemoglobin Concent 32.6 % Red Cell Distribution Width 16.5 % Platelet Count 304 TH/MM3 Mean Platelet Volume 8.4 FL Neutrophils (%) (Auto) 59.2 % Lymphocytes (%) (Auto) 30.6 % Monocytes (%) (Auto) 6.2 % Eosinophils (%) (Auto) 3.5 % Basophils (%) (Auto) 0.5 % Neutrophils # (Auto) 5.2 TH/MM3 Lymphocytes # (Auto) 2.7 TH/MM3 Monocytes # (Auto) 0.5 TH/MM3 Eosinophils # (Auto) 0.3 TH/MM3 Basophils # (Auto) 0.0 TH/MM3 CBC Comment DIFF FINAL Differential Comment Prothrombin Time 9.9 SEC Prothromb Time International Ratio 1.0 RATIO Activated Partial Thromboplast Time 22.2 SEC Blood Urea Nitrogen 7 MG/DL Creatinine 0.60 MG/DL Random Glucose 91 MG/DL Total Protein 6.5 GM/DL Albumin 2.4 GM/DL Calcium Level 8.6 MG/DL Magnesium Level 1.6 MG/DL Alkaline Phosphatase 75 U/L Aspartate Amino Transf (AST/SGOT) 27 U/L Alanine Aminotransferase (ALT/SGPT) 15 U/L Total Bilirubin 0.1 MG/DL Sodium Level 138 MEQ/L Potassium Level 3.7 MEQ/L Chloride Level 108 MEQ/L Carbon Dioxide Level 21.8 MEQ/L Anion Gap 8 MEQ/L Estimat Glomerular Filtration Rate 145 ML/MIN Total Creatine Kinase 407 U/L Creatine Kinase MB 7.1 NG/ML Creatine Kinase MB % 1.7 % Troponin I LESS THAN 0.02 NG/ML [facility] Medical Record Reviewed: Yes Supervised Visit with KRISTOFER: Yes Differential Diagnosis Pulmonary embolus, DVT, idiopathic shortness of breath associated with , pneumonia Narrative Course Patient's chest x-ray is normal. VQ scan read by radiology is normal. Duplex Doppler ultrasound study of lower extremities negative. Patient's oxygen saturations 100% on room air while ambulating around without supplemental oxygen. Patient has no chest pain. Discharge Diagnosis Primary Impression: Gestational dyspnea in second trimester Patient Instructions: Dyspnea (ED), General Instructions Departure Forms: Tests/Procedures Additional Instruction: Follow-up with your [employer]. Return promptly for worsening. Diet, activity, and care as per usual otherwise. Scripts Famotidine (Pepcid) 20 Mg Tab 20 MG PO BID, #60 TAB 0 Refills Prov: Manuel Hussein MD 11/28/17 Disposition: 01 DISCHARGE HOME Condition: Stable Manuel Hussein MD Nov 28, 2017 22:43
--- NOTE | 2017-11-29 12:26 | EKG ---
Date Performed: 11/28/2017 Time Performed: 17:48:40 PTAGE: 27 years EKG: Sinus rhythm WITH SINUS ARRHYTHMIA NORMAL ECG NO PREVIOUS TRACING 11/28/2017 1748 DOCTOR: Yoel Diez Interpretating Date/Time 11/29/2017 12:25:29
== END 2017-11-28 22:51 | disposition home or self-care (01) ==
LOC: NEPC 17:37
DX: O26.893 Other specified pregnancy related conditions, third trimester (principal); R06.00 Dyspnea, unspecified; O99.613 Diseases of the digestive system complicating pregnancy, third trimester; K21.9 Gastro-esophageal reflux disease without esophagitis; Z3A.34 34 weeks gestation of pregnancy
CPT/HCPCS: 71046; 78580; 80053; 82550; 82552; 83735; 84484; 85025; 85610; 85730; 93005; 93971; 99285; A9540

== ENCOUNTER 2017-12-13 10:12 | Emergency (ER) | payer MEDICAID ==
[~2017-12-13] VITALS: Ht 175.3 cm; Wt 107.0 kg
[~2017-12-13 10:12] MED LIST changes: +FAMO1TAB37 PO
[2017-12-13 10:20] VITALS: BP 120/66; PULSE 84; RESP 16; TEMP 97.8; O2SAT 100
[2017-12-13] MEDS ORDERED: AMOX500T PO (11:45)
--- NOTE | 2017-12-13 11:45 | PD ---
HPI Chief Complaint: ENT Complaint Time Seen by Provider: 11:32 Travel History International Travel<30 days: No Contact w/Intl Traveler<30days: No Traveled to known affect area: No History of Present Illness HPI 27-year-old female here for right ear pain 1 week. Patient is 36 weeks . She denies fever or chills. No drainage from the ear. Symptoms severity is mild to moderate. Slightly relieved with OTC Tylenol. No aggravating factors. PFSH Past Medical History Medical History: Denies Significant Hx Diminished Hearing: No Immunizations Current: Yes Seizures: Yes Shingles: Yes Tetanus Vaccination: Unknown Influenza Vaccination: No ?: LMP: 04/19 Menopausal: No : 5 Para: 4 Miscarriage: 0 : 0 Past Surgical History Section: Yes (X1) Other Surgery: Yes (TOE SURGERY) Social History Alcohol Use: No Tobacco Use: No Substance Use: No Allergies-Medications (Allergen,Severity, Reaction): Coded Allergies: codeine (Unverified Allergy, Mild, SICK, ITCHY, 12/13/17) Reported Meds & Prescriptions Reported Meds & Active Scripts Active Amoxicillin 500 Mg Tab 500 Mg PO TID 10 Days Reported Se-Mariama 19 29-1 mg Chew ( Vit W/ Ferrous Fumara Chew) 1 Chew 1 Tab CHEW DAILY Review of Systems Except as stated in HPI: all other systems reviewed are Neg General / Constitutional: No: Fever HENT: Positive: Earache Physical Exam Narrative GENERAL: 27-year-old female SKIN: Warm and dry. HEAD: Normocephalic. EYES: No injection or drainage. Ear/nose/throat: Right TM erythema, bulging, loss of landmarks. No canal swelling or drainage. No mastoid tenderness. NECK: Supple, trachea midline. No JVD or lymphadenopathy. CARDIOVASCULAR: Regular rate and rhythm without murmurs, gallops, or rubs. RESPIRATORY: Breath sounds equal bilaterally. No accessory muscle use. GASTROINTESTINAL: Abdomen soft, non-tender. MUSCULOSKELETAL: No cyanosis, or edema. BACK: Nontender without obvious deformity. No CVA tenderness. Data Data Last Documented VS Vital Signs Date Time Temp Pulse Resp B/P (MAP) Pulse Ox O2 Delivery O2 Flow Rate FiO2 12/13/17 10:20 97.8 84 16 120/66 (84) 100 Orders Orders Ed Discharge Order (12/13/17 11:45) [facility] Medical Decision Making Medical Screen Exam Complete: Yes Emergency Medical Condition: Yes Differential Diagnosis Otitis media, otitis externa, otalgia Narrative Course 27-year-old female here with right sided otitis media. She is 36 weeks . She denies any abdominal pain, vaginal bleeding or discharge. She reports no change in motility. She'll be treated with amoxicillin. Diagnosis Primary Impression: Otitis media Qualified Codes: H66.90 - Otitis media, unspecified, unspecified ear Referrals: Primary Care Physician Additional Instructions: Antibiotics as directed. Tylenol as needed for pain. Follow-up with her primary doctor Scripts Amoxicillin (Amoxicillin) 500 Mg Tab 500 MG PO TID for Infection for 10 Days, TAB 0 Refills Prov: Esther Pulido 12/13/17 Disposition: 01 DISCHARGE HOME Condition: Stable Esther Pulido Dec 13, 2017 11:45
== END 2017-12-13 11:51 | disposition home or self-care (01) ==
LOC: NEPK 10:12
DX: H66.91 Otitis media, unspecified, right ear (principal)
CPT/HCPCS: 99283

== ENCOUNTER 2018-03-10 10:57 | Emergency (ER) | payer MEDICAID ==
[~2018-03-10] VITALS: Ht 180.3 cm; Wt 105.0 kg
[~2018-03-10 10:57] MED LIST changes: -AMOX500C PO; +AMOX500T PO; -FAMO1TAB37 PO
[2018-03-10 11:04] VITALS: BP 124/76; PULSE 77; RESP 15; TEMP 98.3; O2SAT 97
--- NOTE | 2018-03-10 12:10 | RADRPT ---
EXAM DATE: 03/10/2018 12:04 PM EDT AGE/SEX: 27 years / Female INDICATIONS: Pain right ankle for several days, ankle is swollen and stiff, patient denies trauma bu t a small abrasion is visible just anterior to the lateral malleolus CLINICAL DATA: This is the patient's initial encounter. Patient reports that signs and symptoms have been present for 3 days and indicates a pain score of 10/10. MEDICAL/SURGICAL HISTORY: None. None. COMPARISON: No prior exams available for comparison. FINDINGS: Bony structures are intact and in normal alignment. Joints are intact without dislocation or signifi cant arthropathy. Osseous density is normal. Soft tissues are unremarkable. No radiopaque foreign bodies seen. CONCLUSION: Negative examination Electronically signed by: Mina Parker MD 03/10/2018 12:08 PM EDT
--- NOTE | 2018-03-10 12:53 | PD ---
HPI Chief Complaint: Injury Time Seen by Provider: 12:42 Travel History International Travel<30 days: No Contact w/Intl Traveler<30days: No Traveled to known affect area: No History of Present Illness HPI 27-year-old female presents emergency department with right ankle pain and swelling for the past week. 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 She states the pain is worse with walking and standing for long periods of time. She has not taken anything for it. She has not iced it. Pain is currently 8 out of 10. She has no other injuries. She has allergies to codeine. PFSH Past Medical History Diminished Hearing: No Immunizations Current: Yes Seizures: Yes Shingles: Yes ?: Not Menopausal: No : 5 Para: 4 Miscarriage: 0 : 0 Past Surgical History Section: Yes (X1) Other Surgery: Yes (TOE SURGERY) Social History Alcohol Use: No Tobacco Use: No Substance Use: No Allergies-Medications (Allergen,Severity, Reaction): Coded Allergies: codeine (Unverified Allergy, Mild, SICK, ITCHY, 12/13/17) Reported Meds & Prescriptions Reported Meds & Active Scripts Active Amoxicillin 500 Mg Tab 500 Mg PO TID 10 Days Reported Se- 19 29-1 mg Chew ( Vit W/ Ferrous Fumara Chew) 1 Chew 1 Tab CHEW DAILY Review of Systems Except as stated in HPI: all other systems reviewed are Neg General / Constitutional: No: Fever Eyes: No: Visual changes HENT: No: Headaches Cardiovascular: No: Chest Pain or Discomfort Respiratory: No: Shortness of Breath Gastrointestinal: No: Abdominal Pain Genitourinary: No: Dysuria Musculoskeletal: Positive: Arthralgias, Limited ROM, Pain Skin: No Rash Neurologic: No: Weakness Psychiatric: No: Depression Endocrine: No: Polydipsia Hematologic/Lymphatic: No: Easy Bruising Physical Exam Narrative GENERAL: Patient appears in mild distress. SKIN: Warm and dry. Normal color. Normal turgor. Patient does have superficial abrasion over the anterior right ankle which the patient does not recall how she got it. There is no sign of cellulitis or abscess. HEAD: Atraumatic. Normocephalic. EYES: Pupils equal and round. No scleral icterus. No injection or drainage. ENT: No nasal bleeding or discharge. Mucous membranes pink and moist. Pharynx is clear. Airways patent NECK: Trachea midline. Supple and nontender. CARDIOVASCULAR: Regular rate and rhythm. RESPIRATORY: No accessory muscle use. Clear to auscultation. Breath sounds equal bilaterally. MUSCULOSKELETAL: Extremities without clubbing, cyanosis, or edema. No obvious deformities. The right foot and ankle has mild swelling over the lateral malleolus and proximal dorsal foot. Tenderness is elicited with palpation and hyperflexion of the right foot. Neurovascular exam is unremarkable. NEUROLOGICAL: Awake and alert. No obvious cranial nerve deficits. Motor grossly within normal limits. Five out of 5 muscle strength in the arms and legs. Normal speech. PSYCHIATRIC: Appropriate mood and affect; insight and judgment normal. Data Data Last Documented VS Vital Signs Date Time Temp Pulse Resp B/P (MAP) Pulse Ox O2 Delivery O2 Flow Rate FiO2 03/10/18 11:04 98.3 77 15 124/76 (92) 97 Orders Orders Ankle, Complete ([id number]) (03/10/18 ) [facility] Medical Decision Making Medical Screen Exam Complete: Yes Emergency Medical Condition: Yes Differential Diagnosis Right ankle pain. Right ankle swelling. Sprain. Fracture. Narrative Course X-ray of the right ankle is unremarkable. Patient be placed in an Jaya bandage and stirrup ankle splint for comfort. Patient is given ibuprofen 800 mg 3 times daily with food #30. Patient should ice the area frequently and follow-up if symptoms do not improve or worsen as needed. Diagnosis Primary Impression: Tenosynovitis of right ankle Patient Instructions: Ankle Stirrup Splint (ED), General Instructions Departure Forms: Work Release Enter return to work date: Mar 11, 2018 Additional Instructions: X-ray of the right ankle is unremarkable. Patient be placed in an Jaya bandage and stirrup ankle splint for comfort. Patient is given ibuprofen 800 mg 3 times daily with food #30. Patient should ice the area frequently and follow-up if symptoms do not improve or worsen as needed. Med/Other Pt SpecificInfo: Prescription(s) given Disposition: 01 DISCHARGE HOME Condition: Stable Shree Vizcarra Mar 10, 2018 12:53
[2018-03-10] MEDS ORDERED: IBUP1TAB7 PO (12:59)
== END 2018-03-10 14:06 | disposition home or self-care (01) ==
LOC: NEPK 10:57
DX: M65.871 Other synovitis and tenosynovitis, right ankle and foot (principal); Z86.69 Personal history of other diseases of the nervous system and sense organs; Z88.5 Allergy status to narcotic agent; Z79.899 Other long term (current) drug therapy
CPT/HCPCS: 73610; 99283; L1906

== ENCOUNTER 2018-03-14 16:30 | Emergency (ER) | payer MEDICAID ==
[~2018-03-14] VITALS: Ht 180.3 cm; Wt 110.0 kg
[2018-03-14 16:30] VITALS: BP 128/78; PULSE 81; RESP 16; TEMP 98; O2SAT 99
[~2018-03-14 16:30] MED LIST changes: +IBUP1TAB7 PO
--- NOTE | 2018-03-14 18:59 | RADRPT ---
EXAM DATE: 03/14/2018 6:13 PM EDT AGE/SEX: 27 years / Female INDICATIONS: Right lateral ankle pain after fall. CLINICAL DATA: This is the patient's initial encounter. Patient reports that signs and symptoms have been present for 1 day and indicates a pain score of 10/10. MEDICAL/SURGICAL HISTORY: None. None. COMPARISON: No prior exams available for comparison. FINDINGS: No definite fractures, or dislocations are identified. No definite lytic or sclerotic les ion is seen. The joint spaces are well maintained. CONCLUSION: Unremarkable study. Electronically signed by: Yang March MD 03/14/2018 6:57 PM EDT
[2018-03-14] MEDS ORDERED: DICL75TA PO (19:46)
[2018-03-14] MEDS ORDERED: MUPI2OIN TOPICAL (19:46)
[2018-03-14] MEDS ORDERED: ROBA500T PO (19:46)
[2018-03-14] MEDS ORDERED: BACT800T5 PO (19:46)
--- NOTE | 2018-03-14 20:08 | PD ---
HPI Chief Complaint: Injury Time Seen by Provider: 19:20 Travel History International Travel<30 days: No Contact w/Intl Traveler<30days: No Traveled to known affect area: No History of Present Illness HPI 27-year-old female that presents to the ED for evaluation of injury to her right ankle and foot. Per patient she has had this pain for almost a week now. She was seen here on the seventh for evaluation of this and was diagnosed with tendinitis of the ankle and foot. She was encouraged to follow-up with PCP and given instructions to stay off the foot. She denies any other medical issues at this time. No injuries. She states that the pain has not improved or worsened. Per patient she is on her feet a lot secondary to having children at home and she is also requesting a note for work as her job will not let her be without a work note. She denies any other medical issues at this time. No falls or injuries. She does state that she feels itchy on her legs and she has a couple of ulcer-like lesions that are very superficial and appear to be yellowish in discoloration. Some yellow crusting noted. Not tender but very pruritic. Per patient the pain is 7 out of 10 on the foot and gets worse when she bears weight. She denies any actual injury but she does state that she does a lot of heavy lifting at work. PFSH Past Medical History Diminished Hearing: No Immunizations Current: Yes Seizures: Yes Shingles: Yes ?: Not Menopausal: No : 5 Para: 4 Miscarriage: 0 : 0 Past Surgical History Section: Yes (X1) Other Surgery: Yes (TOE SURGERY) Social History Alcohol Use: No Tobacco Use: No Substance Use: No Allergies-Medications (Allergen,Severity, Reaction): Coded Allergies: codeine (Unverified Allergy, Mild, SICK, ITCHY, 12/13/17) Reported Meds & Prescriptions Reported Meds & Active Scripts Active Mupirocin Topical (Mupirocin) 2 % Oint 1 Applic TOPICAL BID Bactrim DS (Sulfamethoxazole-Trimethoprim) 800-160 Mg Tab 1 Tab PO BID 10 Days Robaxin (Methocarbamol) 500 Mg Tab 500 Mg PO TID Diclofenac Sodium DR (Diclofenac Sodium) 75 Mg Tabdr 75 Mg PO BID PRN Ibuprofen 800 Mg Tab 800 Mg PO Q8H PRN Amoxicillin 500 Mg Tab 500 Mg PO TID 10 Days Reported Se-Mariama 19 29-1 mg Chew ( Vit W/ Ferrous Fumara Chew) 1 Chew 1 Tab CHEW DAILY Review of Systems Except as stated in HPI: all other systems reviewed are Neg Physical Exam Narrative GENERAL: SKIN: Warm and dry. HEAD: Atraumatic. Normocephalic. EYES: Pupils equal and round. No scleral icterus. No injection or drainage. ENT: No nasal bleeding or discharge. Mucous membranes pink and moist. Tongue is midline. No uvuladeviation. NECK: Trachea midline. No JVD. CARDIOVASCULAR: Regular rate and rhythm. No murmurs, S3, S4. RESPIRATORY: No accessory muscle use. Clear to auscultation. Breath sounds equal bilaterally. GASTROINTESTINAL: Abdomen soft, non-tender, nondistended. Hepatic and splenic margins not palpable. MUSCULOSKELETAL: Extremities without clubbing, cyanosis, or edema. No obvious deformities. Full range of motion of the upper and lower extremities bilaterally. 2+ pulses bilaterally. Patient does have a little tenderness to palpation on the dorsal aspect of the right foot and ankle. She does have a limping gait on the right side compared to the left. No obvious lateral medial malleolar pain. Most the pain appears to be on the area of the tendons of the dorsal aspect of the foot. Sensation intact. Patient does have 3 ulcer like lesions one on the left right knee, one on the foot itself as well as another one on the medial area close to the Achilles tendon. Appears to have yellow crusting scratch kang. There are less than 1 cm in diameter. Appears to be pruritic. NEUROLOGICAL: Awake and alert. No obvious cranial nerve deficits. Motor grossly within normal limits. Five out of 5 muscle strength in the arms and legs. Normal speech. PSYCHIATRIC: Appropriate mood and affect; insight and judgment normal. Data Data Last Documented VS Vital Signs Date Time Temp Pulse Resp B/P (MAP) Pulse Ox O2 Delivery O2 Flow Rate FiO2 03/14/18 16:30 98.0 81 16 128/78 (95) 99 Orders Orders Ankle, Complete ([id number]) (03/14/18 ) Splint Or Brace Apply/Monitor (03/14/18 19:56) Ed Discharge Order (03/14/18 19:57) MDM Medical Decision Making Medical Screen Exam Complete: Yes Emergency Medical Condition: Yes Medical Record Reviewed: Yes Interpretation(s) Last Impressions Ankle X-Ray 03/14/18 0000 Signed Impressions: CONCLUSION: Unremarkable study. Differential Diagnosis Fracture versus tendinitis versus sprain versus overuse injury versus impetigo Narrative Course 27-year-old female that presents to the ED for evaluation of right foot pain and ankle pain. Patient was properly examined and was found to have signs and symptoms which appear to be consistent with likely tendinitis. Likely from overuse and possible from a sprain. She is still on her feet and pain has not improved which is likely the cause of it. She unfortunately cannot stay of her feet because she has children she has to take care of. At this time I think is reasonable to try muscle relaxant and anti-inflammatory to help with the pain. She does have 3 lesions that appear to be likely impetigo. She is scratching the wounds and likely spreading it. We will give her Bactrim and mupirocin cream. Told to follow-up closely with orthopedic doctor. Given note for work. See ED if worsening symptoms. Follow-up with PCP. Given crutches and brace. Diagnosis Primary Impression: Right foot pain Additional Impressions: Impetigo Tendinitis of ankle Patient Instructions: General Instructions Departure Forms: Tests/Procedures, Work Release Enter return to work date: Mar 17, 2018 Special Instructions: Please allow patient to do light duty. Patient suffered an injury to her right foot which requires rest and she cannot bear weight on the foot without significant pain. Patient is to not do any heavy lifting and should not be doing much walking with her foot. 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 This restrictions are in place until 03/21/18 or better. Additional Instructions: Take medications as prescribed. Follow-up with PCP. See ED for any worsening symptoms. Do not drink or drive while taking pain medication. Apply ice or heat as needed for pain Med/Other Pt SpecificInfo: Prescription(s) given Scripts Mupirocin Topical (Mupirocin Topical) 2 % Oint 1 APPLIC TOPICAL BID for Mgmt Bacterial Infection, #1 TUBE 0 Refills Prov: Casandra Rodas MD 03/14/18 Sulfamethoxazole-Trimethoprim (Bactrim DS) 800-160 Mg Tab 1 TAB PO BID for Infection for 10 Days, #20 TAB 0 Refills Prov: Casandra Rodas MD 03/14/18 Methocarbamol (Robaxin) 500 Mg Tab 500 MG PO TID for Muscle Spasm, #15 TAB 0 Refills Prov: Casandra Rodas MD 03/14/[address] (Diclofenac Sodium DR) 75 Mg Tabdr 75 MG PO BID Y for PAIN SCALE 1 TO 10, #20 TAB 0 Refills Prov: Casandra Rodas MD 03/14/18 Disposition: 01 DISCHARGE HOME Condition: Get Zuniga Mar 14, 2018 20:08
== END 2018-03-14 20:43 | disposition home or self-care (01) ==
LOC: NEPK 16:30
DX: M25.571 Pain in right ankle and joints of right foot (principal); L01.00 Impetigo, unspecified; M77.9 Enthesopathy, unspecified
CPT/HCPCS: 73610; 99283; E0113; L1906